=== PATIENT | female | born 1950 | race Caucasian/White ===

== ENCOUNTER 2017-03-02 12:51 | Inpatient (IN) ==
[2017-03-02] MEDS ORDERED: LEVOFLOXACIN INJ 100 ML IV ONE (14:10)
[2017-03-02] MEDS ORDERED: LEVOFLOXACIN INJ 500 MG in PREMIX 1 EACH IV STA (14:22)
[2017-03-02] MEDS ORDERED: SKIN HEALING OINT (AQUAPHOR) 50 GM TUBE TOP PRN (16:20)
[2017-03-02] MEDS: DILTIAZEM 60 MG TABLET PO SCH ×2 (17:11→22:44)
[2017-03-02] MEDS: ALBUTEROL 2.5 MG/3 ML NEB RESP TX SCH (18:32)
[2017-03-02] MEDS: METOPROLOL TARTRATE 25 MG TABLET PO SCH (21:10)
[2017-03-02] MEDS: ACETAMINOPHEN 325 MG TABLET PO PRN (21:10)
[2017-03-02] MEDS: PIPERACILLIN/TAZOBACTAM 3.375 MG in SODIUM CHLORIDE 0.9% 100 ML IV SCH (21:11)
[2017-03-02] MEDS: MAGNESIUM OXIDE 400 MG TABLET PO SCH (21:11)
[2017-03-03] MEDS: ALBUTEROL 2.5 MG/3 ML NEB RESP TX SCH ×5 (00:57→19:13)
[2017-03-03] MEDS: DILTIAZEM 60 MG TABLET PO SCH ×5 (04:31→20:24)
[2017-03-03] MEDS: PIPERACILLIN/TAZOBACTAM 3.375 MG in SODIUM CHLORIDE 0.9% 100 ML IV SCH ×2 (04:32→21:23)
[2017-03-03] MEDS: ONDANSETRON 4 MG/2 ML VIAL IV PRN ×4 (04:47→18:42)
[2017-03-03 07:37] LABS: Basophils % 0.2 % (0.0-0.8); Eosinophils # 0.2 10*3/uL (0.0-0.87); Hematocrit 28.6 VOL% (35.7-47.0); Hemoglobin 9.3 GM/DL (12.0-16.0); Immature Granulocytes Absolute 0.15 #; Lymphocytes # 1.4 10*3/uL (1.4-4.0); Lymphocytes % 8.8 % (21.3-54.2); Mean Corpuscular HGB Conc 32.5 GM/DL (32-36); Mean Corpuscular Hemoglobin 31 PG (27-34); Mean Corpuscular Volume 95.7 FL (87-102); Mean Platelet Volume 9.5 FL (9.6-12.0); Monocytes # 0.8 10*3/uL (0.11-0.8); Monocytes % 5.3 % (1.7-12.7); Neutrophils # 13.1 10*3/uL (1.4-7.4); Neutrophils % 83.7 % (38.7-73.9); Platelet Count 272 T/CUMM (130-400); Red Blood Count 2.99 MC/CUMM (3.8-5.5); Red Cell Distribution Width 15.6 % (9.3-17.3); White Blood Count 15.6 T/CUMM (4-12)
[2017-03-03 08:07] LABS: Calcium 9.3 MG/DL (8.5-10.1); Osmolality,Calculated 308.2 MOS/KG (273-304); Potassium 5.6 MMOL/L (3.5-5.1)
[2017-03-03] MEDS ORDERED: AMIODARONE 200 MG TABLET PO SCH (09:00)
[2017-03-03] MEDS: LOSARTAN 50 MG TABLET PO SCH ×2 (09:03→16:10)
[2017-03-03] MEDS: oxyCODONE/ACETAMINOPHEN 5-325 MG TABLET PO PRN (09:03)
[2017-03-03] MEDS: ZINC SULFATE 220 MG CAPSULE PO SCH ×2 (09:03→16:11)
[2017-03-03] MEDS: PANTOPRAZOLE 40 MG TABLET PO SCH ×2 (09:04→16:10)
[2017-03-03] MEDS: METOPROLOL TARTRATE 25 MG TABLET PO SCH ×2 (09:04→20:25)
[2017-03-03] MEDS: ASCORBIC ACID 500 MG TABLET PO SCH ×2 (09:04→16:09)
[2017-03-03] MEDS: predniSONE 10 MG TABLET PO SCH ×2 (09:04→16:10)
[2017-03-03] MEDS: MULTIVITAMIN (CENTRUM) TABLET PO SCH ×2 (09:04→16:10)
[2017-03-03] MEDS: MAGNESIUM OXIDE 400 MG TABLET PO SCH ×3 (09:05→20:24)
[2017-03-03 09:19] LABS: Hepatitis B Surface Ag Quant 0.13 Index; Hepatitis B Surface Ag Result Negative (Negative)
[2017-03-03] MEDS ORDERED: DEXTROSE 50% 25 GM/50 ML VIAL IV PRN (11:25)
[2017-03-03] MEDS ORDERED: GLUCAGON 1 MG VIAL IM PRN (11:25)
[2017-03-03] MEDS: INSULIN REGULAR 100 UNIT/ML SUBCUT SCH ×3 (12:11→23:57)
[2017-03-03] MEDS: ACETAMINOPHEN 325 MG TABLET PO PRN (12:33)
[2017-03-03] MEDS ORDERED: HEPARIN 10,000 UNIT/10 ML VIAL IV PRN (12:58)
[2017-03-03] MEDS: NYSTATIN POWDER 15 GM BOTTLE TOP SCH (14:41)
[2017-03-03] MEDS ORDERED: ACETAMINOPHEN 500 MG TABLET ONE (15:29)
[2017-03-03] MEDS ORDERED: ACETAMINOPHEN 500 MG TABLET PO ONE (15:50)
[2017-03-03 16:05] LABS: ABG Oxygen Saturation 91.1 % (95-100); ABG PCO2 38.9 MM HG (35-48); ABG PH 7.459 (7.35-7.45); ABG PO2 59.7 MM HG (80-95); ABG TCO2 28.2 MMOL/L (23-27); Allen Test Positive; Pt O2 Delivery Device Venturi Mask
[2017-03-03] MEDS ORDERED: VANCOMYCIN INJ 750 MG in SODIUM CHLORIDE 0.9% 150 ML IV PRN (16:58)
[2017-03-03] MEDS: methylPREDNISolone SOD SUC 40 MG/1 ML VIAL IV SCH (17:46)
[2017-03-03] MEDS ORDERED: VANCOMYCIN INJ 750 MG in SODIUM CHLORIDE 0.9% 150 ML IV ONE (18:00)
[2017-03-03] MEDS: ZALEPLON 5 MG CAPSULE PO SCH (20:24)
[2017-03-04] MEDS: methylPREDNISolone SOD SUC 40 MG/1 ML VIAL IV SCH ×3 (02:02→18:00)
[2017-03-04] MEDS: ALBUTEROL 2.5 MG/3 ML NEB RESP TX SCH ×4 (02:12→20:13)
[2017-03-04 05:09] LABS: Calcium 9.1 MG/DL (8.5-10.1); Magnesium 2.7 MG/DL (1.8-2.4); Potassium 5.4 MMOL/L (3.5-5.1); Prealbumin 20.3 MG/DL (20-40)
[2017-03-04] MEDS: INSULIN REGULAR 100 UNIT/ML SUBCUT SCH ×3 (06:13→19:21)
[2017-03-04] MEDS: LOSARTAN 50 MG TABLET PO SCH (08:38)
[2017-03-04] MEDS: DILTIAZEM 60 MG TABLET PO SCH ×2 (08:39→12:06)
[2017-03-04] MEDS: METOPROLOL TARTRATE 25 MG TABLET PO SCH ×2 (08:40→20:07)
[2017-03-04] MEDS: PANTOPRAZOLE 40 MG TABLET PO SCH (08:40)
[2017-03-04] MEDS: ZINC SULFATE 220 MG CAPSULE PO SCH (08:44)
[2017-03-04] MEDS: ASCORBIC ACID 500 MG TABLET PO SCH (08:44)
[2017-03-04] MEDS: MULTIVITAMIN (CENTRUM) TABLET PO SCH (08:44)
[2017-03-04] MEDS: MAGNESIUM OXIDE 400 MG TABLET PO SCH ×2 (08:44→20:07)
[2017-03-04] MEDS: PIPERACILLIN/TAZOBACTAM 3.375 MG in SODIUM CHLORIDE 0.9% 100 ML IV SCH ×2 (08:50→21:32)
[2017-03-04] MEDS ORDERED: FAMOTIDINE 8 MG/ML 50 ML/BOTTLE PO ONE (11:00)
[2017-03-04] MEDS: AMIODARONE 200 MG TABLET PO SCH (11:10)
[2017-03-04] MEDS ORDERED: ALUM/MAG/SIMETH/LIDO VISC 1:1 30 ML BOTTLE PO ONE (12:00)
[2017-03-04] MEDS ORDERED: FAMOTIDINE 20 MG TABLET PO ONE (12:00)
[2017-03-04] MEDS: NYSTATIN POWDER 15 GM BOTTLE TOP SCH (12:03)
[2017-03-04] MEDS ORDERED: DILTIAZEM 50 MG/10 ML VIAL IV ONE (12:50)
[2017-03-04] MEDS: DILTIAZEM INJ 100 MG in SODIUM CHLORIDE 0.9% 100 ML IV SCH (14:47)
[2017-03-04] MEDS ORDERED: VANCOMYCIN INJ 750 MG in SODIUM CHLORIDE 0.9% 150 ML IV ONE (15:00)
[2017-03-04] MEDS ORDERED: LEVOFLOXACIN INJ 500 MG in PREMIX 1 EACH IV SCH (20:00)
[2017-03-04] MEDS: ZALEPLON 5 MG CAPSULE PO SCH (20:07)
[2017-03-05] MEDS: INSULIN REGULAR 100 UNIT/ML SUBCUT SCH ×5 (00:12→23:46)
[2017-03-05] MEDS: methylPREDNISolone SOD SUC 40 MG/1 ML VIAL IV SCH ×3 (01:56→18:28)
[2017-03-05] MEDS: ALBUTEROL 2.5 MG/3 ML NEB RESP TX SCH ×4 (04:25→20:04)
[2017-03-05] MEDS ORDERED: LIDOCAINE 1% 20 ML VIAL MISC INJ ONE (07:01)
[2017-03-05] MEDS ORDERED: LIDOCAINE 2% 20 ML VIAL RESP TX ONE (07:01)
[2017-03-05] MEDS ORDERED: MIDAZOLAM 2 MG/2 ML VIAL IV ONE (07:01)
[2017-03-05 08:41] LABS: Basophils % 0.1 % (0.0-0.8); Hematocrit 27.3 VOL% (35.7-47.0); Hemoglobin 8.5 GM/DL (12.0-16.0); Immature Granulocytes % 1.3 %; Immature Granulocytes Absolute 0.14 #; Lymphocytes # 0.5 10*3/uL (1.4-4.0); Lymphocytes % 4.5 % (21.3-54.2); Mean Corpuscular HGB Conc 31.1 GM/DL (32-36); Mean Corpuscular Hemoglobin 31 PG (27-34); Mean Corpuscular Volume 98.9 FL (87-102); Mean Platelet Volume 9.6 FL (9.6-12.0); Monocytes # 0.3 10*3/uL (0.11-0.8); Monocytes % 3.2 % (1.7-12.7); NRBC # 0.02 10*3/uL; Neutrophils # 9.6 10*3/uL (1.4-7.4); Neutrophils % 90.9 % (38.7-73.9); Platelet Count 262 T/CUMM (130-400); Red Blood Count 2.76 MC/CUMM (3.8-5.5); Red Cell Distribution Width 15.3 % (9.3-17.3); White Blood Count 10.6 T/CUMM (4-12)
[2017-03-05 09:01] LABS: Giant Platelets Few; Hypochromasia 1+; Lymphocytes 4 % (20-55); Macrocytosis Slight; Nucleated Red Blood Cells 1 (0-5); Platelet Estimate Adequate; Polychromasia Slight; Segmented Neutrophils 91 % (50-85); Total Cells Counted 100
[2017-03-05 09:19] LABS: Calcium 8.9 MG/DL (8.5-10.1); Magnesium 2.8 MG/DL (1.8-2.4); Osmolality,Calculated 285.4 MOS/KG (273-304); Potassium 4.7 MMOL/L (3.5-5.1)
[2017-03-05] MEDS: DORNASE ALFA 2.5 MG/2.5 ML VIAL RESP TX SCH ×2 (09:29→20:04)
[2017-03-05] MEDS: LOSARTAN 50 MG TABLET PO SCH (09:48)
[2017-03-05] MEDS: MULTIVITAMIN (CENTRUM) TABLET PO SCH (09:50)
[2017-03-05] MEDS: ASCORBIC ACID 500 MG TABLET PO SCH (09:51)
[2017-03-05] MEDS: PANTOPRAZOLE 40 MG TABLET PO SCH (09:52)
[2017-03-05] MEDS: ZINC SULFATE 220 MG CAPSULE PO SCH (09:53)
[2017-03-05] MEDS: METOPROLOL TARTRATE 25 MG TABLET PO SCH ×2 (09:54→20:10)
[2017-03-05] MEDS: MAGNESIUM OXIDE 400 MG TABLET PO SCH ×2 (09:54→20:10)
[2017-03-05] MEDS: AMIODARONE 200 MG TABLET PO SCH (09:55)
[2017-03-05] MEDS: PIPERACILLIN/TAZOBACTAM 3.375 MG in SODIUM CHLORIDE 0.9% 100 ML IV SCH ×2 (09:58→20:10)
[2017-03-05] MEDS: NYSTATIN POWDER 15 GM BOTTLE TOP SCH (09:58)
[2017-03-05] MEDS: DILTIAZEM INJ 100 MG in SODIUM CHLORIDE 0.9% 100 ML IV SCH (15:14)
[2017-03-05] MEDS: ZALEPLON 5 MG CAPSULE PO SCH (20:10)
[2017-03-06] MEDS: methylPREDNISolone SOD SUC 40 MG/1 ML VIAL IV SCH ×2 (00:52→09:25)
[2017-03-06] MEDS: ALBUTEROL 2.5 MG/3 ML NEB RESP TX SCH ×4 (02:42→20:42)
[2017-03-06 04:14] LABS: Calcium 8.4 MG/DL (8.5-10.1); Magnesium 3.1 MG/DL (1.8-2.4); Osmolality,Calculated 292.5 MOS/KG (273-304)
[2017-03-06] MEDS: INSULIN REGULAR 100 UNIT/ML SUBCUT SCH ×2 (06:25→17:59)
[2017-03-06] MEDS: DORNASE ALFA 2.5 MG/2.5 ML VIAL RESP TX SCH ×2 (07:47→20:42)
[2017-03-06] MEDS: ZINC SULFATE 220 MG CAPSULE PO SCH (09:22)
[2017-03-06] MEDS: oxyCODONE/ACETAMINOPHEN 5-325 MG TABLET PO PRN (09:22)
[2017-03-06] MEDS: LOSARTAN 50 MG TABLET PO SCH (09:22)
[2017-03-06] MEDS: ASCORBIC ACID 500 MG TABLET PO SCH (09:23)
[2017-03-06] MEDS: AMIODARONE 200 MG TABLET PO SCH (09:23)
[2017-03-06] MEDS: METOPROLOL TARTRATE 25 MG TABLET PO SCH ×2 (09:23→22:15)
[2017-03-06] MEDS: MULTIVITAMIN (CENTRUM) TABLET PO SCH (09:23)
[2017-03-06] MEDS: NYSTATIN POWDER 15 GM BOTTLE TOP SCH (09:24)
[2017-03-06] MEDS: MAGNESIUM OXIDE 400 MG TABLET PO SCH ×2 (09:24→22:16)
[2017-03-06] MEDS: PANTOPRAZOLE 40 MG TABLET PO SCH (09:24)
[2017-03-06] MEDS ORDERED: METOPROLOL TARTRATE 5 MG/5 ML VIAL IV ONE (13:00)
[2017-03-06] MEDS: PIPERACILLIN/TAZOBACTAM 3.375 MG in SODIUM CHLORIDE 0.9% 100 ML IV SCH ×2 (17:55→22:17)
[2017-03-06] MEDS: ZALEPLON 5 MG CAPSULE PO SCH (22:15)
[2017-03-07] MEDS: INSULIN REGULAR 100 UNIT/ML SUBCUT SCH ×3 (01:09→16:13)
[2017-03-07] MEDS: ALBUTEROL 2.5 MG/3 ML NEB RESP TX SCH ×3 (02:36→13:50)
[2017-03-07] MEDS: DORNASE ALFA 2.5 MG/2.5 ML VIAL RESP TX SCH (07:42)
[2017-03-07] MEDS ORDERED: predniSONE 20 MG TABLET PO SCH (09:00)
[2017-03-07] MEDS: MAGNESIUM OXIDE 400 MG TABLET PO SCH (09:55)
[2017-03-07] MEDS: LOSARTAN 50 MG TABLET PO SCH (09:55)
[2017-03-07] MEDS: ASCORBIC ACID 500 MG TABLET PO SCH (09:56)
[2017-03-07] MEDS: AMIODARONE 200 MG TABLET PO SCH (09:56)
[2017-03-07] MEDS: ZINC SULFATE 220 MG CAPSULE PO SCH (09:56)
[2017-03-07] MEDS: MULTIVITAMIN (CENTRUM) TABLET PO SCH (09:56)
[2017-03-07] MEDS: PANTOPRAZOLE 40 MG TABLET PO SCH (09:57)
[2017-03-07] MEDS: NYSTATIN POWDER 15 GM BOTTLE TOP SCH (09:57)
[2017-03-07] MEDS: METOPROLOL TARTRATE 25 MG TABLET PO SCH (13:51)
[2017-03-07] MEDS: PIPERACILLIN/TAZOBACTAM 3.375 MG in SODIUM CHLORIDE 0.9% 100 ML IV SCH (13:51)
[2017-03-07 16:18] VITALS: BP 139/84
== END 2017-03-07 14:00 | disposition home health service (06) | DRG 193 ==
LOC: EDUNIT# → EDBD → N.ED 12:51 → N.EDINP 15:07 → N.2E 15:49 → N.ICU 03-03 15:59 → N.2E 03-05 23:52
PROVIDERS: ADMIT Internal Medicine; ATTEND Internal Medicine

== ENCOUNTER 2017-06-16 12:00 | Inpatient (IN) ==
[2017-06-16 14:25] LABS: Basophils # 0.1 10*3/uL (0.0-0.2); Basophils % 0.7 % (0.0-0.8); Eosinophils # 0.8 10*3/uL (0.0-0.87); Hematocrit 28.4 VOL% (35.7-47.0); Hemoglobin 8.9 GM/DL (12.0-16.0); Immature Granulocytes % 0.3 %; Immature Granulocytes Absolute 0.02 #; Lymphocytes % 26.2 % (21.3-54.2); Mean Corpuscular HGB Conc 31.3 GM/DL (32-36); Mean Corpuscular Hemoglobin 31 PG (27-34); Mean Corpuscular Volume 99.3 FL (87-102); Mean Platelet Volume 9.6 FL (9.6-12.0); Monocytes # 0.7 10*3/uL (0.11-0.8); Monocytes % 9.3 % (1.7-12.7); Neutrophils # 4.1 10*3/uL (1.4-7.4); Neutrophils % 53.5 % (38.7-73.9); Platelet Count 255 T/CUMM (130-400); Red Blood Count 2.86 MC/CUMM (3.8-5.5); Red Cell Distribution Width 17.4 % (9.3-17.3); White Blood Count 7.6 T/CUMM (4-12)
[2017-06-16] MEDS ORDERED: ACETAMINOPHEN 325 MG TABLET PO PRN (14:41)
[2017-06-16] MEDS ORDERED: MORPHINE 4 MG/1 ML VIAL IV PRN (14:41)
[2017-06-16] MEDS ORDERED: ONDANSETRON 4 MG/2 ML VIAL IV PRN (14:41)
[2017-06-16] MEDS: PANTOPRAZOLE 40 MG VIAL IV SCH ×3 (17:53→21:32)
[2017-06-16] MEDS: LACTULOSE 20 GM/30 ML UDCUP PO SCH ×2 (17:54→21:32)
[2017-06-16] MEDS: AMIODARONE 200 MG TABLET PO SCH (17:54)
[2017-06-16] MEDS: ASCORBIC ACID 500 MG TABLET PO SCH (17:54)
[2017-06-16] MEDS: predniSONE 5 MG TABLET PO SCH (17:54)
[2017-06-16] MEDS: MULTIVITAMIN (CENTRUM) TABLET PO SCH (17:54)
[2017-06-16] MEDS: MAGNESIUM OXIDE 400 MG TABLET PO SCH ×2 (17:54→21:31)
[2017-06-16] MEDS: ZINC SULFATE 220 MG CAPSULE PO SCH (17:54)
[2017-06-16 20:54] LABS: Hematocrit 26.4 VOL% (35.7-47.0); Hemoglobin 8.5 GM/DL (12.0-16.0)
[2017-06-16] MEDS: diphenhydrAMINE CAP 25 MG CAPSULE PO PRN (21:32)
[2017-06-17 07:15] LABS: Basophils % 0.3 % (0.0-0.8); Eosinophils # 0.4 10*3/uL (0.0-0.87); Eosinophils % 6.6 % (0.00-10.9); Hematocrit 24.3 VOL% (35.7-47.0); Immature Granulocytes % 0.8 %; Immature Granulocytes Absolute 0.05 #; Lymphocytes # 1.5 10*3/uL (1.4-4.0); Lymphocytes % 24.6 % (21.3-54.2); Mean Corpuscular HGB Conc 32.9 GM/DL (32-36); Mean Corpuscular Hemoglobin 32 PG (27-34); Mean Corpuscular Volume 97.2 FL (87-102); Mean Platelet Volume 9.9 FL (9.6-12.0); Monocytes # 0.7 10*3/uL (0.11-0.8); Monocytes % 10.9 % (1.7-12.7); Neutrophils # 3.5 10*3/uL (1.4-7.4); Neutrophils % 56.8 % (38.7-73.9); Platelet Count 252 T/CUMM (130-400); Red Cell Distribution Width 17.4 % (9.3-17.3); White Blood Count 6.2 T/CUMM (4-12)
[2017-06-17] MEDS: PANTOPRAZOLE 40 MG VIAL IV SCH ×2 (07:25→20:38)
[2017-06-17] MEDS: ZINC SULFATE 220 MG CAPSULE PO SCH (07:25)
[2017-06-17] MEDS: predniSONE 5 MG TABLET PO SCH (07:25)
[2017-06-17] MEDS: AMIODARONE 200 MG TABLET PO SCH (07:25)
[2017-06-17] MEDS: MAGNESIUM OXIDE 400 MG TABLET PO SCH ×2 (07:25→20:19)
[2017-06-17] MEDS: MULTIVITAMIN (CENTRUM) TABLET PO SCH (07:25)
[2017-06-17] MEDS: ASCORBIC ACID 500 MG TABLET PO SCH (07:25)
[2017-06-17] MEDS: LACTULOSE 20 GM/30 ML UDCUP PO SCH (07:25)
[2017-06-17 07:32] LABS: Calcium 8.1 MG/DL (8.5-10.1); Osmolality,Calculated 279.1 MOS/KG (273-304); Potassium 4.7 MMOL/L (3.5-5.1)
[2017-06-17 07:51] LABS: % Iron Saturation 26.9 % (18-50); Ferritin 1314.5 ng/ml (8-252)
[2017-06-17 08:47] LABS: Hemoglobin 7.9 GM/DL (12.0-16.0)
[2017-06-17] MEDS ORDERED: HEPARIN 10,000 UNIT/10 ML VIAL IV PRN (11:45)
[2017-06-17 11:55] LABS: Hematocrit 21.6 VOL% (35.7-47.0); Hemoglobin 7.1 GM/DL (12.0-16.0)
[2017-06-17] MEDS ORDERED: SODIUM CHLORIDE 0.9% 1,000 ML IV PRN ×2 (11:59→21:45)
[2017-06-17 15:06] LABS: Hematocrit 21.6 VOL% (35.7-47.0); Hemoglobin 7.1 GM/DL (12.0-16.0)
[2017-06-17] MEDS: diphenhydrAMINE CAP 25 MG CAPSULE PO PRN (20:45)
[2017-06-18 07:40] LABS: Basophils % 0.3 % (0.0-0.8); Eosinophils # 0.5 10*3/uL (0.0-0.87); Hematocrit 19.6 VOL% (35.7-47.0); Immature Granulocytes % 0.6 %; Immature Granulocytes Absolute 0.06 #; Lymphocytes # 2.1 10*3/uL (1.4-4.0); Lymphocytes % 20.6 % (21.3-54.2); Mean Corpuscular HGB Conc 31.6 GM/DL (32-36); Mean Corpuscular Hemoglobin 30 PG (27-34); Mean Corpuscular Volume 95.6 FL (87-102); Mean Platelet Volume 9.7 FL (9.6-12.0); Monocytes # 0.8 10*3/uL (0.11-0.8); Monocytes % 7.9 % (1.7-12.7); Neutrophils # 6.7 10*3/uL (1.4-7.4); Neutrophils % 65.6 % (38.7-73.9); Platelet Count 189 T/CUMM (130-400); Red Blood Count 2.05 MC/CUMM (3.8-5.5); Red Cell Distribution Width 17.2 % (9.3-17.3); White Blood Count 10.2 T/CUMM (4-12)
[2017-06-18 07:46] LABS: Hemoglobin 6.2 GM/DL (12.0-16.0)
[2017-06-18 08:05] LABS: Calcium 8.2 MG/DL (8.5-10.1); Osmolality,Calculated 283.1 MOS/KG (273-304); Potassium 5.6 MMOL/L (3.5-5.1)
[2017-06-18] MEDS: PANTOPRAZOLE 40 MG VIAL IV SCH ×2 (08:56→20:56)
[2017-06-18] MEDS: ASCORBIC ACID 500 MG TABLET PO SCH (08:58)
[2017-06-18] MEDS: predniSONE 5 MG TABLET PO SCH (08:58)
[2017-06-18] MEDS: MAGNESIUM OXIDE 400 MG TABLET PO SCH ×2 (08:58→20:31)
[2017-06-18] MEDS: MULTIVITAMIN (CENTRUM) TABLET PO SCH (08:58)
[2017-06-18] MEDS ORDERED: PROPOFOL 200 MG/20 ML VIAL IV ONE (13:13)
[2017-06-18] MEDS ORDERED: HEPARIN 10,000 UNIT/10 ML VIAL IV SCH (16:00)
[2017-06-18 18:56] LABS: Hematocrit 33.4 VOL% (35.7-47.0)
[2017-06-18 19:01] LABS: Hemoglobin 11.3 GM/DL (12.0-16.0)
[2017-06-18] MEDS: diphenhydrAMINE CAP 25 MG CAPSULE PO PRN (20:56)
[2017-06-19] MEDS: diphenhydrAMINE CAP 25 MG CAPSULE PO PRN ×3 (04:10→20:22)
[2017-06-19 06:07] LABS: Hematocrit 31.9 VOL% (35.7-47.0)
[2017-06-19] MEDS: hydrALAZINE 20 MG/1 ML VIAL IV PRN ×2 (06:21→13:21)
[2017-06-19] MEDS: MULTIVITAMIN (CENTRUM) TABLET PO SCH (08:13)
[2017-06-19] MEDS: MAGNESIUM OXIDE 400 MG TABLET PO SCH ×2 (08:14→20:21)
[2017-06-19] MEDS: PANTOPRAZOLE 40 MG VIAL IV SCH ×2 (08:15→20:22)
[2017-06-19] MEDS: ASCORBIC ACID 500 MG TABLET PO SCH (08:15)
[2017-06-19] MEDS: predniSONE 5 MG TABLET PO SCH (08:15)
[2017-06-19] MEDS: METOPROLOL TARTRATE 50 MG TABLET PO SCH ×2 (14:14→20:21)
[2017-06-20] MEDS: MULTIVITAMIN (CENTRUM) TABLET PO SCH ×2 (07:50→11:07)
[2017-06-20] MEDS: predniSONE 5 MG TABLET PO SCH ×2 (07:50→11:07)
[2017-06-20] MEDS: METOPROLOL TARTRATE 50 MG TABLET PO SCH ×2 (07:50→11:07)
[2017-06-20] MEDS: ASCORBIC ACID 500 MG TABLET PO SCH ×2 (07:50→11:07)
[2017-06-20] MEDS: MAGNESIUM OXIDE 400 MG TABLET PO SCH ×2 (07:50→11:07)
[2017-06-20] MEDS: PANTOPRAZOLE 40 MG VIAL IV SCH ×2 (07:51→11:07)
[2017-06-20 12:56] VITALS: BP 170/84
== END 2017-06-20 13:00 | disposition home or self-care (01) | DRG 377 ==
LOC: EDBD → EDUNIT# → N.EDINP 12:00 → N.ED 12:00 → N.5E 17:11 → N.CC 06-17 11:49 → SUATTDRO 06-17 13:22 → N.4E 06-19 21:15
PROVIDERS: ADMIT Internal Medicine; ATTEND Internal Medicine Infectious Disease

== ENCOUNTER 2017-06-21 01:39 | Inpatient (IN) ==
[2017-06-21 02:47] LABS: Basophils # 0.1 10*3/uL (0.0-0.2); Basophils % 0.9 % (0.0-0.8); Eosinophils # 0.8 10*3/uL (0.0-0.87); Eosinophils % 9.5 % (0.00-10.9); Hematocrit 33.8 VOL% (35.7-47.0); Immature Granulocytes % 0.5 %; Immature Granulocytes Absolute 0.04 #; Lymphocytes # 1.8 10*3/uL (1.4-4.0); Lymphocytes % 22.4 % (21.3-54.2); Mean Corpuscular HGB Conc 32.5 GM/DL (32-36); Mean Corpuscular Hemoglobin 30 PG (27-34); Mean Corpuscular Volume 90.9 FL (87-102); Mean Platelet Volume 9.7 FL (9.6-12.0); Monocytes # 0.7 10*3/uL (0.11-0.8); Monocytes % 7.9 % (1.7-12.7); Neutrophils # 4.8 10*3/uL (1.4-7.4); Neutrophils % 58.8 % (38.7-73.9); Platelet Count 198 T/CUMM (130-400); Red Blood Count 3.72 MC/CUMM (3.8-5.5); Red Cell Distribution Width 17.4 % (9.3-17.3); White Blood Count 8.2 T/CUMM (4-12)
[2017-06-21 02:59] LABS: Calcium 8.4 MG/DL (8.5-10.1); Potassium 4.6 MMOL/L (3.5-5.1)
[2017-06-21] MEDS ORDERED: SODIUM CHLORIDE 0.9% 1,000 ML IV PRN (08:14)
[2017-06-21] MEDS ORDERED: NOREPINEPHRINE 8 MG in SODIUM CHLORIDE 0.9% 242 ML IV PRN (08:36)
[2017-06-21] MEDS ORDERED: PANTOPRAZOLE 40 MG TABLET PO SCH (09:00)
[2017-06-21 09:22] LABS: Basophils # 0.1 10*3/uL (0.0-0.2); Basophils % 0.6 % (0.0-0.8); Eosinophils # 0.7 10*3/uL (0.0-0.87); Eosinophils % 8.2 % (0.00-10.9); Hematocrit 26.5 VOL% (35.7-47.0); Hematocrit 26.8 VOL% (35.7-47.0); Hemoglobin 8.5 GM/DL (12.0-16.0); Hemoglobin 8.8 GM/DL (12.0-16.0); Immature Granulocytes % 0.8 %; Immature Granulocytes Absolute 0.07 #; Lymphocytes # 1.9 10*3/uL (1.4-4.0); Lymphocytes % 21.6 % (21.3-54.2); Mean Corpuscular HGB Conc 32.1 GM/DL (32-36); Mean Corpuscular Hemoglobin 29 PG (27-34); Mean Corpuscular Volume 90.4 FL (87-102); Mean Platelet Volume 9.6 FL (9.6-12.0); Monocytes # 0.7 10*3/uL (0.11-0.8); Monocytes % 8.3 % (1.7-12.7); Neutrophils # 5.2 10*3/uL (1.4-7.4); Neutrophils % 60.5 % (38.7-73.9); Platelet Count 173 T/CUMM (130-400); Red Blood Count 2.93 MC/CUMM (3.8-5.5); Red Cell Distribution Width 17.4 % (9.3-17.3); White Blood Count 8.6 T/CUMM (4-12)
[2017-06-21 09:32] LABS: INR 1.1; PT Patient Result 11.2 SECS; Partial Thromboplastin Time 26.3 SECS (0-40)
[2017-06-21] MEDS: PANTOPRAZOLE 40 MG VIAL IV SCH (09:39)
[2017-06-21 15:59] LABS: Hematocrit 29.2 VOL% (35.7-47.0); Hemoglobin 9.7 GM/DL (12.0-16.0)
[2017-06-21 21:19] LABS: Hematocrit 27.5 VOL% (35.7-47.0); Hemoglobin 9.1 GM/DL (12.0-16.0)
[2017-06-22 03:20] LABS: Hematocrit 27.7 VOL% (35.7-47.0); Hemoglobin 8.9 GM/DL (12.0-16.0)
[2017-06-22 03:29] LABS: Partial Thromboplastin Time 26.1 SECS (0-40)
[2017-06-22 03:53] LABS: % Iron Saturation 30.3 % (18-50); Ferritin 1113.2 ng/ml (8-252)
[2017-06-22 06:31] LABS: Hematocrit 28.2 VOL% (35.7-47.0); Hemoglobin 9.2 GM/DL (12.0-16.0)
[2017-06-22 09:20] LABS: Hemoglobin 9.3 GM/DL (12.0-16.0)
[2017-06-22] MEDS: PANTOPRAZOLE 40 MG VIAL IV SCH (09:26)
[2017-06-22] MEDS ORDERED: BISACODYL 5 MG TABLET PO ONE (12:00)
[2017-06-22] MEDS ORDERED: POLYETHYLENE GLYCOL POWDER 255 GM BOTTLE PO ONE (13:00)
[2017-06-22 15:35] LABS: Hematocrit 26.8 VOL% (35.7-47.0); Hemoglobin 8.8 GM/DL (12.0-16.0)
[2017-06-22] MEDS: ONDANSETRON 4 MG/2 ML VIAL IV PRN ×2 (19:14→23:02)
[2017-06-22] MEDS ORDERED: MAGNESIUM CITRATE 300 ML BOTTLE PO ONE (21:00)
[2017-06-22 21:52] LABS: Hematocrit 25.8 VOL% (35.7-47.0); Hemoglobin 8.4 GM/DL (12.0-16.0)
[2017-06-23 05:51] LABS: Hematocrit 25.3 VOL% (35.7-47.0); Hemoglobin 8.1 GM/DL (12.0-16.0)
[2017-06-23] MEDS: PANTOPRAZOLE 40 MG VIAL IV SCH (08:11)
[2017-06-23] MEDS ORDERED: PHENYLEPHRINE 1 MG/10 ML SYRINGE IV ONE (10:00)
[2017-06-23] MEDS ORDERED: LIDOCAINE 100 MG/5 ML SYRINGE ONE (10:00)
[2017-06-23] MEDS ORDERED: PROPOFOL 200 MG/20 ML VIAL IV ONE (10:00)
[2017-06-23 13:58] LABS: Hematocrit 22.6 VOL% (35.7-47.0); Hemoglobin 7.2 GM/DL (12.0-16.0)
[2017-06-23 20:04] LABS: Hematocrit 21.1 VOL% (35.7-47.0)
[2017-06-23] MEDS ORDERED: SODIUM CHLORIDE 0.9% 1,000 ML IV PRN (20:11)
[2017-06-24 02:05] LABS: Hematocrit 24.7 VOL% (35.7-47.0)
[2017-06-24] MEDS: HYDROmorphone 2 MG/1 ML VIAL IM PRN (04:45)
[2017-06-24] MEDS: ONDANSETRON 4 MG/2 ML VIAL IV PRN (07:52)
[2017-06-24] MEDS: PANTOPRAZOLE 40 MG VIAL IV SCH (08:11)
[2017-06-24] MEDS: SKIN HEALING OINT (AQUAPHOR) 50 GM TUBE TOP PRN (08:14)
[2017-06-24] MEDS ORDERED: DEXTROSE 5% 1,000 ML IV SCH (11:00)
[2017-06-24 13:55] LABS: Hematocrit 27.4 VOL% (35.7-47.0); Hemoglobin 8.5 GM/DL (12.0-16.0)
[2017-06-24 19:08] LABS: Hematocrit 25.9 VOL% (35.7-47.0); Hemoglobin 8.1 GM/DL (12.0-16.0)
[2017-06-25 01:45] LABS: Hematocrit 22.6 VOL% (35.7-47.0); Hemoglobin 7.1 GM/DL (12.0-16.0)
[2017-06-25] MEDS: ONDANSETRON 4 MG/2 ML VIAL IV PRN ×2 (05:01→19:56)
[2017-06-25] MEDS: PANTOPRAZOLE 40 MG VIAL IV SCH (08:59)
[2017-06-25 12:05] LABS: Hematocrit 28.2 VOL% (35.7-47.0)
[2017-06-25 12:11] LABS: Hemoglobin 9.2 GM/DL (12.0-16.0)
[2017-06-25] MEDS: SKIN HEALING OINT (AQUAPHOR) 50 GM TUBE TOP PRN (13:30)
[2017-06-25] MEDS: ACETAMINOPHEN 325 MG TABLET PO PRN ×2 (15:03→21:07)
[2017-06-25] MEDS ORDERED: LEVOFLOXACIN INJ 500 MG in PREMIX 1 EACH IV ONE (17:00)
[2017-06-26 05:05] LABS: Basophils % 0.3 % (0.0-0.8); Eosinophils # 0.7 10*3/uL (0.0-0.87); Eosinophils % 6.6 % (0.00-10.9); Hematocrit 22.8 VOL% (35.7-47.0); Hemoglobin 7.6 GM/DL (12.0-16.0); Immature Granulocytes % 0.5 %; Immature Granulocytes Absolute 0.06 #; Lymphocytes # 2.1 10*3/uL (1.4-4.0); Lymphocytes % 18.8 % (21.3-54.2); Mean Corpuscular HGB Conc 33.3 GM/DL (32-36); Mean Corpuscular Hemoglobin 29 PG (27-34); Mean Corpuscular Volume 87.4 FL (87-102); Mean Platelet Volume 9.2 FL (9.6-12.0); Monocytes # 0.9 10*3/uL (0.11-0.8); Monocytes % 7.9 % (1.7-12.7); Neutrophils # 7.3 10*3/uL (1.4-7.4); Neutrophils % 65.9 % (38.7-73.9); Platelet Count 221 T/CUMM (130-400); Red Blood Count 2.61 MC/CUMM (3.8-5.5); Red Cell Distribution Width 17.8 % (9.3-17.3); White Blood Count 11.1 T/CUMM (4-12)
[2017-06-26 05:33] LABS: Calcium 8.1 MG/DL (8.5-10.1)
[2017-06-26] MEDS: PANTOPRAZOLE 40 MG VIAL IV SCH (08:45)
[2017-06-26 09:45] LABS: Hematocrit 26.1 VOL% (35.7-47.0); Hemoglobin 8.6 GM/DL (12.0-16.0)
[2017-06-26] MEDS ORDERED: cefOXitin 2,000 MG in SYRINGE 1 EACH IV ONE (10:03)
[2017-06-26] MEDS ORDERED: METOPROLOL TARTRATE 50 MG TABLET ONE (11:05)
[2017-06-26] MEDS ORDERED: METOPROLOL TARTRATE 50 MG TABLET PO ONE (11:10)
[2017-06-26] MEDS ORDERED: BUPIVACAINE 0.25% 50 ML VIAL ONE (13:22)
[2017-06-26] MEDS ORDERED: SODIUM CHLORIDE 0.9% 1,000 ML IV PRN (13:47)
[2017-06-26] MEDS ORDERED: fentaNYL 100 MCG/2 ML VIAL ONE (15:10)
[2017-06-26] MEDS ORDERED: DESFLURANE 1 UNIT/15 MINUTE INH ONE (15:10)
[2017-06-26] MEDS ORDERED: ACETAMINOPHEN 1,000 MG/100 ML VIAL IV ONE (15:11)
[2017-06-26] MEDS ORDERED: ROCURONIUM 100 MG/10 ML VIAL IV ONE (15:11)
[2017-06-26] MEDS ORDERED: ETOMIDATE 40 MG/20 ML VIAL IV ONE (15:11)
[2017-06-26] MEDS ORDERED: SODIUM CHLORIDE 0.9% 500 ML IV ONE (15:11)
[2017-06-26] MEDS ORDERED: NEOSTIGMINE 10 MG/10 ML VIAL ONE (15:11)
[2017-06-26] MEDS ORDERED: GLYCOPYRROLATE 0.4 MG/2 ML VIAL ONE (15:11)
[2017-06-26] MEDS ORDERED: ONDANSETRON 4 MG/2 ML VIAL ONE (15:11)
[2017-06-26] MEDS ORDERED: PHENYLEPHRINE 10 MG/1 ML VIAL IV ONE (15:11)
[2017-06-26] MEDS ORDERED: KETOROLAC 30 MG/1 ML VIAL ONE (15:11)
[2017-06-26] MEDS ORDERED: PHENYLEPHRINE DRIP 40 MG/250 ML PREMIX IV ONE (15:22)
[2017-06-26] MEDS: PHENYLEPHRINE DRIP 40 MG/250 ML PREMIX IV PRN (15:26)
[2017-06-26 15:57] LABS: Hematocrit 28.3 VOL% (35.7-47.0)
[2017-06-26] MEDS: IPRATROPIUM 500 MCG/2.5 ML NEB RESP TX SCH (19:38)
[2017-06-26] MEDS: HYDROmorphone 2 MG/1 ML VIAL IM PRN (22:09)
[2017-06-27] MEDS: IPRATROPIUM 500 MCG/2.5 ML NEB RESP TX SCH ×4 (00:45→20:30)
[2017-06-27] MEDS: ACETAMINOPHEN 325 MG TABLET PO PRN ×2 (04:20→20:14)
[2017-06-27 06:04] LABS: Basophils # 0.1 10*3/uL (0.0-0.2); Basophils % 0.7 % (0.0-0.8); Eosinophils # 0.7 10*3/uL (0.0-0.87); Hemoglobin 8.9 GM/DL (12.0-16.0); Immature Granulocytes % 0.7 %; Immature Granulocytes Absolute 0.09 #; Lymphocytes # 1.7 10*3/uL (1.4-4.0); Lymphocytes % 14.1 % (21.3-54.2); Mean Corpuscular HGB Conc 31.8 GM/DL (32-36); Mean Corpuscular Hemoglobin 28 PG (27-34); Mean Corpuscular Volume 88.6 FL (87-102); Mean Platelet Volume 9.4 FL (9.6-12.0); Monocytes # 0.8 10*3/uL (0.11-0.8); Monocytes % 6.7 % (1.7-12.7); Neutrophils # 8.7 10*3/uL (1.4-7.4); Neutrophils % 71.8 % (38.7-73.9); Platelet Count 257 T/CUMM (130-400); Red Blood Count 3.16 MC/CUMM (3.8-5.5); Red Cell Distribution Width 19.9 % (9.3-17.3); White Blood Count 12.1 T/CUMM (4-12)
[2017-06-27 06:30] LABS: Blood Urea Nitrogen 35 MG/DL (7-18); Calcium 8.5 MG/DL (8.5-10.1); Glucose 42 MG/DL (74-106); Sodium 136 MMOL/L (136-145)
[2017-06-27 06:31] LABS: Troponin I Only 0.141 NG/ML (0.00-0.045)
[2017-06-27 06:33] LABS: Potassium 6.3 MMOL/L (3.5-5.1)
[2017-06-27] MEDS: PHENYLEPHRINE DRIP 40 MG/250 ML PREMIX IV PRN (07:10)
[2017-06-27 08:11] LABS: Calcium 8.3 MG/DL (8.5-10.1); Osmolality,Calculated 273.1 MOS/KG (273-304)
[2017-06-27 08:18] LABS: Potassium 6.3 MMOL/L (3.5-5.1)
[2017-06-27] MEDS: DEXTROSE 50% 25 GM/50 ML VIAL IV PRN ×2 (08:30→12:40)
[2017-06-27] MEDS: PANTOPRAZOLE 40 MG VIAL IV SCH (08:43)
[2017-06-27] MEDS: DEXTROSE 5% NACL 0.9% 1,000 ML IV SCH (09:25)
[2017-06-27] MEDS ORDERED: NALOXONE 0.4 MG/ML VIAL IV PRN (11:41)
[2017-06-27] MEDS ORDERED: MORPHINE PCA 30 MG/30 ML SYRINGE IV SCH (12:00)
[2017-06-27] MEDS: HYDROmorphone 2 MG/1 ML VIAL IM PRN ×2 (12:39→17:54)
[2017-06-27] MEDS: ONDANSETRON 4 MG/2 ML VIAL IV PRN ×2 (12:40→17:54)
[2017-06-27 13:11] LABS: Potassium 3.9 MMOL/L (3.5-5.1)
[2017-06-27] MEDS ORDERED: GLUCAGON 1 MG VIAL IM PRN (14:08)
[2017-06-27] MEDS: FAT EMULSION 20% 250 ML IV SCH (15:25)
[2017-06-27] MEDS ORDERED: DEXTROSE 10% 1,000 ML IV PRN (17:00)
[2017-06-27] MEDS ORDERED: DEXTROSE IV SCH (17:00)
[2017-06-27] MEDS ORDERED: MULTIVITAMIN IV SCH (17:00)
[2017-06-27] MEDS ORDERED: AMINO ACIDS 10% IV SCH (17:00)
[2017-06-27] MEDS: INSULIN REGULAR 100 UNIT/ML SUBCUT SCH (17:55)
[2017-06-28] MEDS: INSULIN REGULAR 100 UNIT/ML SUBCUT SCH ×4 (00:13→17:28)
[2017-06-28] MEDS: IPRATROPIUM 500 MCG/2.5 ML NEB RESP TX SCH ×5 (02:14→23:58)
[2017-06-28] MEDS: HYDROmorphone 2 MG/1 ML VIAL IM PRN ×2 (02:50→16:11)
[2017-06-28 06:18] LABS: Osmolality,Calculated 276.1 MOS/KG (273-304); Potassium 4.2 MMOL/L (3.5-5.1)
[2017-06-28 07:22] LABS: Basophils # 0.1 10*3/uL (0.0-0.2); Basophils % 0.6 % (0.0-0.8); Eosinophils # 0.8 10*3/uL (0.0-0.87); Eosinophils % 8.1 % (0.00-10.9); Hematocrit 25.9 VOL% (35.7-47.0); Hemoglobin 7.8 GM/DL (12.0-16.0); Immature Granulocytes % 0.6 %; Immature Granulocytes Absolute 0.06 #; Lymphocytes % 9.4 % (21.3-54.2); Mean Corpuscular HGB Conc 30.1 GM/DL (32-36); Mean Corpuscular Hemoglobin 27 PG (27-34); Mean Corpuscular Volume 90.6 FL (87-102); Mean Platelet Volume 9.5 FL (9.6-12.0); Monocytes # 0.8 10*3/uL (0.11-0.8); Monocytes % 8.2 % (1.7-12.7); Neutrophils # 7.4 10*3/uL (1.4-7.4); Neutrophils % 73.1 % (38.7-73.9); Platelet Count 257 T/CUMM (130-400); Red Blood Count 2.86 MC/CUMM (3.8-5.5); Red Cell Distribution Width 19.7 % (9.3-17.3); White Blood Count 10.2 T/CUMM (4-12)
[2017-06-28] MEDS: PANTOPRAZOLE 40 MG VIAL IV SCH (08:42)
[2017-06-28] MEDS: DEXTROSE 5% NACL 0.9% 1,000 ML IV SCH (11:25)
[2017-06-28] MEDS: FAT EMULSION 20% 250 ML IV SCH (14:12)
[2017-06-29] MEDS: INSULIN REGULAR 100 UNIT/ML SUBCUT SCH ×4 (01:28→17:08)
[2017-06-29] MEDS ORDERED: KETOROLAC 30 MG/1 ML VIAL IM ONE (03:00)
[2017-06-29 04:37] LABS: Basophils % 0.3 % (0.0-0.8); Eosinophils # 1.2 10*3/uL (0.0-0.87); Eosinophils % 12.8 % (0.00-10.9); Hematocrit 22.4 VOL% (35.7-47.0); Hemoglobin 6.9 GM/DL (12.0-16.0); Immature Granulocytes % 0.9 %; Immature Granulocytes Absolute 0.08 #; Lymphocytes # 1.4 10*3/uL (1.4-4.0); Lymphocytes % 15.1 % (21.3-54.2); Mean Corpuscular HGB Conc 30.8 GM/DL (32-36); Mean Corpuscular Hemoglobin 28 PG (27-34); Mean Corpuscular Volume 89.6 FL (87-102); Mean Platelet Volume 9.6 FL (9.6-12.0); Monocytes # 0.6 10*3/uL (0.11-0.8); Monocytes % 6.8 % (1.7-12.7); Neutrophils # 5.9 10*3/uL (1.4-7.4); Neutrophils % 64.1 % (38.7-73.9); Platelet Count 206 T/CUMM (130-400); Red Cell Distribution Width 19.3 % (9.3-17.3); White Blood Count 9.1 T/CUMM (4-12)
[2017-06-29] MEDS ORDERED: SODIUM CHLORIDE 0.9% 1,000 ML IV PRN (04:53)
[2017-06-29 04:59] LABS: Calcium 8.1 MG/DL (8.5-10.1); Osmolality,Calculated 276.1 MOS/KG (273-304); Potassium 3.9 MMOL/L (3.5-5.1)
[2017-06-29 05:02] LABS: Prealbumin 7.9 MG/DL (20-40)
[2017-06-29 05:25] LABS: Eosinophils 9 % (0-10); Giant Platelets Few; Hypochromasia 1+; Lymphocytes 18 % (20-55); Platelet Estimate Adequate; Segmented Neutrophils 67 % (50-85); Total Cells Counted 100
[2017-06-29] MEDS: IPRATROPIUM 500 MCG/2.5 ML NEB RESP TX SCH ×4 (07:38→19:38)
[2017-06-29] MEDS: HYDROmorphone 2 MG/1 ML VIAL IM PRN (08:03)
[2017-06-29] MEDS: PANTOPRAZOLE 40 MG VIAL IV SCH (08:04)
[2017-06-29 12:39] LABS: Hematocrit 26.3 VOL% (35.7-47.0); Hemoglobin 8.3 GM/DL (12.0-16.0)
[2017-06-29] MEDS: [UNRECOGNIZED DRUG - OTHER] IV SCH (14:18)
[2017-06-29] MEDS: FAT EMULSION 20% 250 ML IV SCH (14:18)
[2017-06-29] MEDS: MULTIVITAMIN IV SCH (14:18)
[2017-06-29] MEDS: TRACE ELEMENTS IV SCH (14:18)
[2017-06-29] MEDS: DEXTROSE IV SCH (14:18)
[2017-06-29] MEDS: HYDROmorphone 2 MG/1 ML VIAL IV PRN (18:06)
[2017-06-29] MEDS: LORATADINE 10 MG TABLET PO PRN (18:58)
[2017-06-29] MEDS: DORNASE ALFA 2.5 MG/2.5 ML VIAL RESP TX SCH (19:51)
[2017-06-29] MEDS ORDERED: ACETAMINOPHEN 325 MG TABLET PO STA (23:19)
[2017-06-30] MEDS: IPRATROPIUM 500 MCG/2.5 ML NEB RESP TX SCH ×4 (00:36→19:03)
[2017-06-30] MEDS: INSULIN REGULAR 100 UNIT/ML SUBCUT SCH ×4 (01:03→18:56)
[2017-06-30 05:53] LABS: Basophils % 0.5 % (0.0-0.8); Eosinophils # 1.1 10*3/uL (0.0-0.87); Eosinophils % 12.9 % (0.00-10.9); Hematocrit 25.5 VOL% (35.7-47.0); Hemoglobin 8.2 GM/DL (12.0-16.0); Immature Granulocytes % 1.8 %; Immature Granulocytes Absolute 0.15 #; Lymphocytes # 1.1 10*3/uL (1.4-4.0); Lymphocytes % 12.4 % (21.3-54.2); Mean Corpuscular HGB Conc 32.2 GM/DL (32-36); Mean Corpuscular Hemoglobin 28 PG (27-34); Mean Corpuscular Volume 86.7 FL (87-102); Mean Platelet Volume 9.4 FL (9.6-12.0); Monocytes # 0.6 10*3/uL (0.11-0.8); Monocytes % 6.7 % (1.7-12.7); NRBC # 0.02 10*3/uL; Neutrophils # 5.6 10*3/uL (1.4-7.4); Neutrophils % 65.7 % (38.7-73.9); Platelet Count 255 T/CUMM (130-400); Red Blood Count 2.94 MC/CUMM (3.8-5.5); Red Cell Distribution Width 18.1 % (9.3-17.3); White Blood Count 8.6 T/CUMM (4-12)
[2017-06-30 06:18] LABS: Elliptocytes Few; Eosinophils 5 % (0-10); Hypochromasia Slight; Lymphocytes 7 % (20-55); Macrocytosis 1+; Platelet Estimate Adequate; Segmented Neutrophils 78 % (50-85); Total Cells Counted 100
[2017-06-30 06:20] LABS: Calcium 8.2 MG/DL (8.5-10.1); Osmolality,Calculated 281.4 MOS/KG (273-304); Potassium 3.9 MMOL/L (3.5-5.1)
[2017-06-30] MEDS: DORNASE ALFA 2.5 MG/2.5 ML VIAL RESP TX SCH ×2 (07:16→19:05)
[2017-06-30] MEDS: PANTOPRAZOLE 40 MG VIAL IV SCH (08:08)
[2017-06-30] MEDS ORDERED: HEPARIN 10,000 UNIT/10 ML VIAL IV PRN (10:35)
[2017-06-30] MEDS: DEXTROSE IV SCH (13:57)
[2017-06-30] MEDS: MULTIVITAMIN IV SCH (13:57)
[2017-06-30] MEDS: TRACE ELEMENTS IV SCH (13:57)
[2017-06-30] MEDS: [UNRECOGNIZED DRUG - OTHER] IV SCH (13:57)
[2017-06-30] MEDS: FAT EMULSION 20% 250 ML IV SCH (13:58)
[2017-06-30] MEDS ORDERED: ACETAMINOPHEN 325 MG/10.15 ML UDCUP PO PRN (14:17)
[2017-06-30] MEDS: PIPERACILLIN/TAZOBACTAM 3,375 MG in SODIUM CHLORIDE 0.9% 100 ML IV SCH (14:44)
[2017-06-30] MEDS ORDERED: VANCOMYCIN INJ 400 MG in SODIUM CHLORIDE 0.9% 100 ML IV PRN (15:12)
[2017-06-30] MEDS: ACETAMINOPHEN 325 MG/10.15 ML UDCUP PO PRN (16:10)
[2017-06-30] MEDS ORDERED: VANCOMYCIN INJ 1,000 MG in SODIUM CHLORIDE 0.9% 250 ML IV ONE (20:00)
[2017-06-30] MEDS: HYDROmorphone 2 MG/1 ML VIAL IV PRN (23:10)
[2017-07-01] MEDS: INSULIN REGULAR 100 UNIT/ML SUBCUT SCH ×4 (00:30→18:39)
[2017-07-01] MEDS: IPRATROPIUM 500 MCG/2.5 ML NEB RESP TX SCH ×4 (00:36→19:48)
[2017-07-01] MEDS: PIPERACILLIN/TAZOBACTAM 3,375 MG in SODIUM CHLORIDE 0.9% 100 ML IV SCH ×2 (03:15→14:31)
[2017-07-01] MEDS: ACETAMINOPHEN 325 MG/10.15 ML UDCUP PO PRN (04:21)
[2017-07-01 05:05] LABS: Calcium 8.1 MG/DL (8.5-10.1); Osmolality,Calculated 271.5 MOS/KG (273-304); Potassium 3.6 MMOL/L (3.5-5.1)
[2017-07-01] MEDS: TRACE ELEMENTS IV SCH (06:21)
[2017-07-01] MEDS: [UNRECOGNIZED DRUG - OTHER] IV SCH (06:21)
[2017-07-01] MEDS: MULTIVITAMIN IV SCH (06:21)
[2017-07-01] MEDS: DEXTROSE IV SCH (06:21)
[2017-07-01] MEDS ORDERED: SODIUM CHLORIDE 0.9% 500 ML IV ONE (07:39)
[2017-07-01] MEDS: DORNASE ALFA 2.5 MG/2.5 ML VIAL RESP TX SCH ×2 (07:41→19:49)
[2017-07-01 08:25] LABS: Basophils # 0.1 10*3/uL (0.0-0.2); Basophils % 0.5 % (0.0-0.8); Eosinophils # 1.3 10*3/uL (0.0-0.87); Eosinophils % 9.9 % (0.00-10.9); Hematocrit 25.7 VOL% (35.7-47.0); Hemoglobin 8.2 GM/DL (12.0-16.0); Immature Granulocytes % 1.9 %; Immature Granulocytes Absolute 0.25 #; Lymphocytes # 0.9 10*3/uL (1.4-4.0); Lymphocytes % 6.9 % (21.3-54.2); Mean Corpuscular HGB Conc 31.9 GM/DL (32-36); Mean Corpuscular Hemoglobin 28 PG (27-34); Mean Corpuscular Volume 86.8 FL (87-102); Mean Platelet Volume 9.8 FL (9.6-12.0); Monocytes # 0.8 10*3/uL (0.11-0.8); Neutrophils # 9.7 10*3/uL (1.4-7.4); Neutrophils % 74.8 % (38.7-73.9); Platelet Count 270 T/CUMM (130-400); Red Blood Count 2.96 MC/CUMM (3.8-5.5); Red Cell Distribution Width 17.9 % (9.3-17.3)
[2017-07-01] MEDS: PANTOPRAZOLE 40 MG VIAL IV SCH (08:46)
[2017-07-01] MEDS: ONDANSETRON 4 MG/2 ML VIAL IV PRN ×2 (09:17→12:53)
[2017-07-01] MEDS: HYDROmorphone 2 MG/1 ML VIAL IV PRN ×2 (09:18→12:54)
[2017-07-01] MEDS ORDERED: SUGAMMADEX 200 MG/2 ML VIAL IV ONE (11:14)
[2017-07-01] MEDS ORDERED: DEXAMETHASONE 4 MG/1 ML VIAL ONE (11:48)
[2017-07-01] MEDS ORDERED: PROPOFOL 200 MG/20 ML VIAL IV ONE (11:52)
[2017-07-01] MEDS ORDERED: LABETALOL 20 MG/4 ML SYRINGE IV ONE (11:52)
[2017-07-01] MEDS ORDERED: ePHEDrine 50 MG/ML AMP ONE (11:53)
[2017-07-01] MEDS ORDERED: SEVOFLURANE 1 UNIT/15 MINUTE INH ONE (11:53)
[2017-07-01] MEDS ORDERED: fentaNYL 100 MCG/2 ML VIAL ONE (11:53)
[2017-07-01] MEDS ORDERED: ONDANSETRON 4 MG/2 ML VIAL ONE (11:53)
[2017-07-01] MEDS ORDERED: ROCURONIUM 100 MG/10 ML VIAL IV ONE (11:54)
[2017-07-01] MEDS ORDERED: SODIUM CHLORIDE 0.9% 250 ML IV ONE (11:54)
[2017-07-01] MEDS ORDERED: NEOSTIGMINE 10 MG/10 ML VIAL ONE (11:54)
[2017-07-01] MEDS ORDERED: GLYCOPYRROLATE 0.4 MG/2 ML VIAL ONE (11:54)
[2017-07-01] MEDS ORDERED: PHENYLEPHRINE 10 MG/1 ML VIAL IV ONE (11:54)
[2017-07-01] MEDS ORDERED: methylPREDNISolone SOD SUC 125 MG/2 ML VIAL ONE (11:54)
[2017-07-01] MEDS ORDERED: DEXAMETHASONE 4 MG/1 ML VIAL IV ONE (12:05)
[2017-07-01 12:40] LABS: Calcium 8.5 MG/DL (8.5-10.1); Osmolality,Calculated 272.7 MOS/KG (273-304); Potassium 3.7 MMOL/L (3.5-5.1)
[2017-07-01] MEDS: FAT EMULSION 20% 250 ML IV SCH (14:31)
[2017-07-01] MEDS ORDERED: hydrALAZINE 20 MG/1 ML VIAL IV PRN (19:43)
[2017-07-02] MEDS: HYDROmorphone 2 MG/1 ML VIAL IV PRN ×4 (00:41→20:32)
[2017-07-02] MEDS: IPRATROPIUM 500 MCG/2.5 ML NEB RESP TX SCH ×4 (00:56→19:25)
[2017-07-02] MEDS: INSULIN REGULAR 100 UNIT/ML SUBCUT SCH ×4 (01:12→18:06)
[2017-07-02] MEDS: TRACE ELEMENTS IV SCH ×3 (01:17→17:17)
[2017-07-02] MEDS: MULTIVITAMIN IV SCH ×3 (01:17→17:17)
[2017-07-02] MEDS: DEXTROSE IV SCH ×2 (01:17→03:04)
[2017-07-02] MEDS: [UNRECOGNIZED DRUG - OTHER] IV SCH ×2 (01:17→03:04)
[2017-07-02] MEDS: PIPERACILLIN/TAZOBACTAM 3,375 MG in SODIUM CHLORIDE 0.9% 100 ML IV SCH ×2 (03:04→14:28)
[2017-07-02 06:31] LABS: Osmolality,Calculated 277.1 MOS/KG (273-304); Potassium 3.5 MMOL/L (3.5-5.1); Prealbumin 8.7 MG/DL (20-40)
[2017-07-02] MEDS ORDERED: LIDOCAINE 1% 20 ML VIAL MISC INJ ONE (06:48)
[2017-07-02] MEDS ORDERED: LIDOCAINE 2% 20 ML VIAL RESP TX ONE (06:48)
[2017-07-02] MEDS ORDERED: MIDAZOLAM 2 MG/2 ML VIAL IV ONE ×2 (06:48→07:12)
[2017-07-02] MEDS: DORNASE ALFA 2.5 MG/2.5 ML VIAL RESP TX SCH (07:35)
[2017-07-02 07:44] LABS: Basophils # 0.2 10*3/uL (0.0-0.2); Basophils % 0.7 % (0.0-0.8); Eosinophils # 0.1 10*3/uL (0.0-0.87); Eosinophils % 0.3 % (0.00-10.9); Hematocrit 31.2 VOL% (35.7-47.0); Hemoglobin 9.7 GM/DL (12.0-16.0); Immature Granulocytes % 7.7 %; Immature Granulocytes Absolute 2.19 #; Lymphocytes # 2.5 10*3/uL (1.4-4.0); Lymphocytes % 8.8 % (21.3-54.2); Mean Corpuscular HGB Conc 31.1 GM/DL (32-36); Mean Corpuscular Hemoglobin 28 PG (27-34); Mean Corpuscular Volume 89.7 FL (87-102); Mean Platelet Volume 9.5 FL (9.6-12.0); Monocytes # 1.1 10*3/uL (0.11-0.8); Monocytes % 3.9 % (1.7-12.7); Neutrophils # 22.5 10*3/uL (1.4-7.4); Neutrophils % 78.6 % (38.7-73.9); Platelet Count 388 T/CUMM (130-400); Red Blood Count 3.48 MC/CUMM (3.8-5.5); Red Cell Distribution Width 17.5 % (9.3-17.3); White Blood Count 28.6 T/CUMM (4-12)
[2017-07-02 08:07] LABS: Band Neutrophils 1 % (0-10); Lymphocytes 11 % (20-55); Metamyelocytes 2 %; Myelocytes 1 %; Segmented Neutrophils 82 % (50-85); Total Cells Counted 100
[2017-07-02 08:08] LABS: Burr Cells Few; Hypochromasia 1+; Microcytosis 1+; Polychromasia Slight
[2017-07-02 08:09] LABS: Ovalocytes Slight; Platelet Estimate Normal
[2017-07-02] MEDS: PANTOPRAZOLE 40 MG VIAL IV SCH (09:34)
[2017-07-02] MEDS: HYDROCORTISONE 100 MG VIAL IV SCH ×2 (09:37→20:32)
[2017-07-02 13:48] LABS: Hepatitis B Surface Ag Quant < 0.10 Index; Hepatitis B Surface Ag Result Negative (Negative)
[2017-07-02] MEDS: FAT EMULSION 20% 250 ML IV SCH (14:28)
[2017-07-02] MEDS ORDERED: VANCOMYCIN INJ 500 MG in SODIUM CHLORIDE 0.9% 100 ML IV PRN (15:00)
[2017-07-02] MEDS: [UNRECOGNIZED DRUG - OTHER] IV SCH (17:17)
[2017-07-02] MEDS: INSULIN REGULAR IV SCH (17:17)
[2017-07-02] MEDS ORDERED: VANCOMYCIN INJ 500 MG in SODIUM CHLORIDE 0.9% 100 ML IV ONE (21:00)
[2017-07-03] MEDS: INSULIN REGULAR 100 UNIT/ML SUBCUT SCH ×4 (00:05→18:30)
[2017-07-03] MEDS: DORNASE ALFA 2.5 MG/2.5 ML VIAL RESP TX SCH (01:15)
[2017-07-03] MEDS: PIPERACILLIN/TAZOBACTAM 3,375 MG in SODIUM CHLORIDE 0.9% 100 ML IV SCH ×2 (02:42→15:35)
[2017-07-03 03:36] LABS: Basophils % 0.1 % (0.0-0.8); Eosinophils % 0.1 % (0.00-10.9); Hematocrit 23.1 VOL% (35.7-47.0); Immature Granulocytes % 6.2 %; Immature Granulocytes Absolute 1.37 #; Lymphocytes # 0.7 10*3/uL (1.4-4.0); Lymphocytes % 3.4 % (21.3-54.2); Mean Corpuscular HGB Conc 32.5 GM/DL (32-36); Mean Corpuscular Hemoglobin 28 PG (27-34); Mean Corpuscular Volume 86.5 FL (87-102); Monocytes # 1.2 10*3/uL (0.11-0.8); Monocytes % 5.2 % (1.7-12.7); Neutrophils # 18.7 10*3/uL (1.4-7.4); Platelet Count 282 T/CUMM (130-400); Red Blood Count 2.67 MC/CUMM (3.8-5.5)
[2017-07-03 03:37] LABS: Hemoglobin 7.5 GM/DL (12.0-16.0)
[2017-07-03 03:50] LABS: Calcium 8.6 MG/DL (8.5-10.1); Osmolality,Calculated 268.8 MOS/KG (273-304); Potassium 3.3 MMOL/L (3.5-5.1)
[2017-07-03 03:51] LABS: Band Neutrophils 15 % (0-10); Lymphocytes 3 % (20-55); Metamyelocytes 2 %; Segmented Neutrophils 76 % (50-85); Total Cells Counted 100
[2017-07-03 03:52] LABS: Anisocytosis 1+; Poikilocytosis 1+; Polychromasia Slight
[2017-07-03] MEDS: HYDROCORTISONE 100 MG VIAL IV SCH ×2 (06:04→18:30)
[2017-07-03] MEDS: HYDROmorphone 2 MG/1 ML VIAL IV PRN ×3 (06:05→21:03)
[2017-07-03] MEDS: IPRATROPIUM 500 MCG/2.5 ML NEB RESP TX SCH ×4 (07:20→19:26)
[2017-07-03] MEDS ORDERED: SODIUM CHLORIDE 0.9% 1,000 ML IV PRN (07:32)
[2017-07-03] MEDS ORDERED: MAGNESIUM SULF RIDER 4 GM in PREMIX 1 EACH IV PRN (08:11)
[2017-07-03] MEDS ORDERED: MAGNESIUM SULF RIDER 2 GM in PREMIX 1 EACH IV PRN (08:11)
[2017-07-03] MEDS ORDERED: POTASSIUM CHLORIDE RIDER 10 MEQ in PREMIX 1 EACH IV PRN (08:11)
[2017-07-03] MEDS: PANTOPRAZOLE 40 MG VIAL IV SCH (09:20)
[2017-07-03] MEDS ORDERED: HYDROmorphone 2 MG/1 ML VIAL IV ONE (09:49)
[2017-07-03] MEDS: METOPROLOL TARTRATE 50 MG TABLET PO SCH ×2 (14:19→21:02)
[2017-07-03] MEDS: AMIODARONE 200 MG TABLET PO SCH (14:19)
[2017-07-03] MEDS: INSULIN REGULAR IV SCH (14:32)
[2017-07-03] MEDS: TRACE ELEMENTS IV SCH (14:32)
[2017-07-03] MEDS: MULTIVITAMIN IV SCH (14:32)
[2017-07-03] MEDS: [UNRECOGNIZED DRUG - OTHER] IV SCH (14:32)
[2017-07-03] MEDS: FAT EMULSION 20% 250 ML IV SCH (15:01)
[2017-07-04] MEDS: INSULIN REGULAR 100 UNIT/ML SUBCUT SCH ×5 (00:24→23:51)
[2017-07-04] MEDS: IPRATROPIUM 500 MCG/2.5 ML NEB RESP TX SCH ×4 (01:06→19:33)
[2017-07-04] MEDS: PIPERACILLIN/TAZOBACTAM 3,375 MG in SODIUM CHLORIDE 0.9% 100 ML IV SCH ×2 (02:32→14:57)
[2017-07-04] MEDS: HYDROmorphone 2 MG/1 ML VIAL IV PRN ×4 (02:33→18:12)
[2017-07-04 03:19] LABS: Basophils % 0.2 % (0.0-0.8); Eosinophils % 0.1 % (0.00-10.9); Hematocrit 27.8 VOL% (35.7-47.0); Hemoglobin 9.1 GM/DL (12.0-16.0); Immature Granulocytes % 7.3 %; Immature Granulocytes Absolute 1.67 #; Lymphocytes % 4.3 % (21.3-54.2); Mean Corpuscular HGB Conc 32.7 GM/DL (32-36); Mean Corpuscular Hemoglobin 28 PG (27-34); Mean Corpuscular Volume 85.3 FL (87-102); Mean Platelet Volume 9.7 FL (9.6-12.0); Monocytes # 1.3 10*3/uL (0.11-0.8); Monocytes % 5.8 % (1.7-12.7); Neutrophils # 18.9 10*3/uL (1.4-7.4); Neutrophils % 82.3 % (38.7-73.9); Platelet Count 298 T/CUMM (130-400); Red Blood Count 3.26 MC/CUMM (3.8-5.5); Red Cell Distribution Width 17.5 % (9.3-17.3)
[2017-07-04 03:46] LABS: Calcium 8.4 MG/DL (8.5-10.1); Osmolality,Calculated 274.2 MOS/KG (273-304); Potassium 3.2 MMOL/L (3.5-5.1)
[2017-07-04 03:57] LABS: Band Neutrophils 4 % (0-10); Lymphocytes 6 % (20-55); Segmented Neutrophils 85 % (50-85); Total Cells Counted 100
[2017-07-04 03:59] LABS: Burr Cells Few; Polychromasia Few; Target Cells Few
[2017-07-04 04:00] LABS: Elliptocytes Few; Giant Platelets Few; Hypochromasia Slight; Platelet Estimate Normal
[2017-07-04] MEDS ORDERED: FUROSEMIDE 40 MG/4 ML VIAL IV ONE (05:23)
[2017-07-04] MEDS: HYDROCORTISONE 100 MG VIAL IV SCH ×2 (07:33→18:17)
[2017-07-04] MEDS: METOPROLOL TARTRATE 50 MG TABLET PO SCH ×2 (08:26→20:03)
[2017-07-04] MEDS: AMIODARONE 200 MG TABLET PO SCH (08:26)
[2017-07-04] MEDS: PANTOPRAZOLE 40 MG VIAL IV SCH (08:26)
[2017-07-04] MEDS: TRACE ELEMENTS IV SCH ×2 (12:34→12:48)
[2017-07-04] MEDS: INSULIN REGULAR IV SCH ×2 (12:34→12:48)
[2017-07-04] MEDS: MULTIVITAMIN IV SCH ×2 (12:34→12:48)
[2017-07-04] MEDS: [UNRECOGNIZED DRUG - OTHER] IV SCH ×2 (12:34→12:48)
[2017-07-04] MEDS: FAT EMULSION 20% 250 ML IV SCH (14:37)
[2017-07-04] MEDS ORDERED: VANCOMYCIN INJ 500 MG in SODIUM CHLORIDE 0.9% 100 ML IV ONE (18:00)
[2017-07-05] MEDS: HYDROmorphone 2 MG/1 ML VIAL IV PRN ×5 (00:09→22:36)
[2017-07-05] MEDS: IPRATROPIUM 500 MCG/2.5 ML NEB RESP TX SCH ×4 (01:11→19:11)
[2017-07-05] MEDS: PIPERACILLIN/TAZOBACTAM 3,375 MG in SODIUM CHLORIDE 0.9% 100 ML IV SCH ×2 (04:34→15:53)
[2017-07-05 05:11] LABS: Basophils # 0.1 10*3/uL (0.0-0.2); Basophils % 0.3 % (0.0-0.8); Eosinophils # 0.1 10*3/uL (0.0-0.87); Eosinophils % 0.3 % (0.00-10.9); Hematocrit 25.7 VOL% (35.7-47.0); Hemoglobin 8.3 GM/DL (12.0-16.0); Immature Granulocytes % 8.2 %; Immature Granulocytes Absolute 1.44 #; Lymphocytes % 5.6 % (21.3-54.2); Mean Corpuscular HGB Conc 32.3 GM/DL (32-36); Mean Corpuscular Hemoglobin 28 PG (27-34); Mean Corpuscular Volume 86.2 FL (87-102); Monocytes # 1.3 10*3/uL (0.11-0.8); Monocytes % 7.5 % (1.7-12.7); Neutrophils # 13.7 10*3/uL (1.4-7.4); Neutrophils % 78.1 % (38.7-73.9); Platelet Count 285 T/CUMM (130-400); Red Blood Count 2.98 MC/CUMM (3.8-5.5); Red Cell Distribution Width 18.1 % (9.3-17.3); White Blood Count 17.6 T/CUMM (4-12)
[2017-07-05] MEDS: INSULIN REGULAR 100 UNIT/ML SUBCUT SCH ×3 (05:18→18:29)
[2017-07-05] MEDS: INSULIN REGULAR IV SCH (05:55)
[2017-07-05] MEDS: TRACE ELEMENTS IV SCH (05:55)
[2017-07-05] MEDS: MULTIVITAMIN IV SCH (05:55)
[2017-07-05] MEDS: [UNRECOGNIZED DRUG - OTHER] IV SCH (05:55)
[2017-07-05] MEDS: HYDROCORTISONE 100 MG VIAL IV SCH ×2 (06:00→18:30)
[2017-07-05 06:33] LABS: Band Neutrophils 5 % (0-10); Eosinophils 1 % (0-10); Hypochromasia 2+; Lymphocytes 2 % (20-55); Myelocytes 1 %; Platelet Estimate Adequate; Segmented Neutrophils 86 % (50-85); Total Cells Counted 100
[2017-07-05] MEDS: AMIODARONE 200 MG TABLET PO SCH (09:18)
[2017-07-05] MEDS: METOPROLOL TARTRATE 50 MG TABLET PO SCH ×2 (09:18→21:01)
[2017-07-05] MEDS: PANTOPRAZOLE 40 MG VIAL IV SCH (09:21)
[2017-07-05] MEDS: FAT EMULSION 20% 250 ML IV SCH (14:20)
[2017-07-05] MEDS: FLUCONAZOLE 200 MG TABLET PO SCH (17:21)
[2017-07-05] MEDS: SKIN HEALING OINT (AQUAPHOR) 50 GM TUBE TOP PRN (17:47)
[2017-07-06] MEDS: INSULIN REGULAR 100 UNIT/ML SUBCUT SCH ×4 (00:29→18:19)
[2017-07-06] MEDS: MULTIVITAMIN IV SCH ×2 (01:08→17:30)
[2017-07-06] MEDS: INSULIN REGULAR IV SCH (01:08)
[2017-07-06] MEDS: [UNRECOGNIZED DRUG - OTHER] IV SCH (01:08)
[2017-07-06] MEDS: TRACE ELEMENTS IV SCH ×2 (01:08→17:30)
[2017-07-06] MEDS: IPRATROPIUM 500 MCG/2.5 ML NEB RESP TX SCH ×4 (01:59→19:30)
[2017-07-06] MEDS: HYDROmorphone 2 MG/1 ML VIAL IV PRN ×5 (01:59→22:17)
[2017-07-06] MEDS: PIPERACILLIN/TAZOBACTAM 3,375 MG in SODIUM CHLORIDE 0.9% 100 ML IV SCH ×2 (03:49→15:27)
[2017-07-06 06:05] LABS: Basophils # 0.1 10*3/uL (0.0-0.2); Basophils % 0.6 % (0.0-0.8); Eosinophils # 0.1 10*3/uL (0.0-0.87); Eosinophils % 0.4 % (0.00-10.9); Hematocrit 28.5 VOL% (35.7-47.0); Hemoglobin 9.1 GM/DL (12.0-16.0); Immature Granulocytes % 10.9 %; Immature Granulocytes Absolute 2.38 #; Lymphocytes # 1.7 10*3/uL (1.4-4.0); Lymphocytes % 7.8 % (21.3-54.2); Mean Corpuscular HGB Conc 31.9 GM/DL (32-36); Mean Corpuscular Hemoglobin 28 PG (27-34); Mean Corpuscular Volume 86.6 FL (87-102); Mean Platelet Volume 9.4 FL (9.6-12.0); Monocytes # 1.7 10*3/uL (0.11-0.8); Monocytes % 7.7 % (1.7-12.7); NRBC # 0.02 10*3/uL; Neutrophils # 15.8 10*3/uL (1.4-7.4); Neutrophils % 72.6 % (38.7-73.9); Platelet Count 310 T/CUMM (130-400); Red Blood Count 3.29 MC/CUMM (3.8-5.5); Red Cell Distribution Width 17.8 % (9.3-17.3); White Blood Count 21.8 T/CUMM (4-12)
[2017-07-06] MEDS: HYDROCORTISONE 100 MG VIAL IV SCH ×2 (06:11→18:47)
[2017-07-06 06:26] LABS: Eosinophils 2 % (0-10); Hypochromasia 1+; Lymphocytes 10 % (20-55); Metamyelocytes 1 %; Segmented Neutrophils 80 % (50-85); Total Cells Counted 100
[2017-07-06 06:27] LABS: Microcytosis 1+; Ovalocytes Slight; Platelet Estimate Normal
[2017-07-06 06:36] LABS: Calcium 8.6 MG/DL (8.5-10.1); Osmolality,Calculated 275.4 MOS/KG (273-304)
[2017-07-06 06:42] LABS: Prealbumin 18.5 MG/DL (20-40)
[2017-07-06] MEDS: METOPROLOL TARTRATE 50 MG TABLET PO SCH ×2 (08:51→22:20)
[2017-07-06] MEDS: POTASSIUM CHLORIDE RIDER 20 MEQ in PREMIX 1 EACH IV PRN ×2 (08:51→10:51)
[2017-07-06] MEDS: AMIODARONE 200 MG TABLET PO SCH (08:51)
[2017-07-06] MEDS: PANTOPRAZOLE 40 MG VIAL IV SCH (08:51)
[2017-07-06] MEDS: FAT EMULSION 20% 250 ML IV SCH (17:00)
[2017-07-06] MEDS: [UNRECOGNIZED DRUG - OTHER] IV SCH (17:30)
[2017-07-06] MEDS: ELECTROLYTE IV SCH (17:30)
[2017-07-06] MEDS: DESITIN 4OZ/NYSTATIN 15 GRAM MIXTURE PASTE TOP SCH (22:18)
[2017-07-06] MEDS: cloNIDine 0.1 MG/24 HR PATCH TRANSDERM SCH (22:19)
[2017-07-07] MEDS: INSULIN REGULAR 100 UNIT/ML SUBCUT SCH ×4 (00:56→18:31)
[2017-07-07] MEDS: IPRATROPIUM 500 MCG/2.5 ML NEB RESP TX SCH ×4 (01:52→19:37)
[2017-07-07] MEDS: HYDROmorphone 2 MG/1 ML VIAL IV PRN ×3 (01:57→20:51)
[2017-07-07] MEDS: PIPERACILLIN/TAZOBACTAM 3,375 MG in SODIUM CHLORIDE 0.9% 100 ML IV SCH (03:40)
[2017-07-07 05:46] LABS: Basophils % 0.1 % (0.0-0.8); Eosinophils # 0.4 10*3/uL (0.0-0.87); Eosinophils % 1.1 % (0.00-10.9); Hemoglobin 10.2 GM/DL (12.0-16.0); Immature Granulocytes % 11.9 %; Immature Granulocytes Absolute 3.94 #; Lymphocytes # 2.1 10*3/uL (1.4-4.0); Lymphocytes % 6.2 % (21.3-54.2); Mean Corpuscular HGB Conc 31.9 GM/DL (32-36); Mean Corpuscular Hemoglobin 28 PG (27-34); Mean Corpuscular Volume 87.7 FL (87-102); Mean Platelet Volume 9.4 FL (9.6-12.0); Monocytes # 2.8 10*3/uL (0.11-0.8); Monocytes % 8.3 % (1.7-12.7); NRBC # 0.03 10*3/uL; Neutrophils # 24.1 10*3/uL (1.4-7.4); Neutrophils % 72.4 % (38.7-73.9); Platelet Count 403 T/CUMM (130-400); Red Blood Count 3.65 MC/CUMM (3.8-5.5); Red Cell Distribution Width 17.9 % (9.3-17.3); White Blood Count 33.2 T/CUMM (4-12)
[2017-07-07 06:11] LABS: Eosinophils 4 % (0-10); Lymphocytes 6 % (20-55); Myelocytes 3 %; Segmented Neutrophils 82 % (50-85); Total Cells Counted 100
[2017-07-07 06:12] LABS: Hypochromasia 1+; Microcytosis 1+; Platelet Estimate Increased
[2017-07-07 06:13] LABS: Ovalocytes Slight; Polychromasia Slight
[2017-07-07 06:18] LABS: Osmolality,Calculated 273.8 MOS/KG (273-304); Potassium 3.8 MMOL/L (3.5-5.1)
[2017-07-07] MEDS: METOPROLOL TARTRATE 50 MG TABLET PO SCH ×2 (09:24→20:52)
[2017-07-07] MEDS: AMIODARONE 200 MG TABLET PO SCH (09:24)
[2017-07-07] MEDS: FLUCONAZOLE 200 MG TABLET PO SCH (09:24)
[2017-07-07] MEDS: HYDROCORTISONE 100 MG VIAL IV SCH ×2 (12:38→20:45)
[2017-07-07] MEDS: PANTOPRAZOLE 40 MG VIAL IV SCH (12:38)
[2017-07-07] MEDS: DESITIN 4OZ/NYSTATIN 15 GRAM MIXTURE PASTE TOP SCH ×2 (12:38→20:52)
[2017-07-07] MEDS: FAT EMULSION 20% 250 ML IV SCH (16:10)
[2017-07-07] MEDS: MULTIVITAMIN IV SCH (16:11)
[2017-07-07] MEDS: ELECTROLYTE IV SCH (16:11)
[2017-07-07] MEDS: TRACE ELEMENTS IV SCH (16:11)
[2017-07-07] MEDS: [UNRECOGNIZED DRUG - OTHER] IV SCH (16:11)
[2017-07-07] MEDS ORDERED: ACETAMINOPHEN 650 MG SUPP RECTAL PRN (16:20)
[2017-07-07] MEDS ORDERED: VANCOMYCIN INJ 500 MG in SODIUM CHLORIDE 0.9% 100 ML IV PRN (17:00)
[2017-07-07] MEDS ORDERED: VANCOMYCIN INJ 500 MG in SODIUM CHLORIDE 0.9% 100 ML IV ONE (18:30)
[2017-07-07] MEDS: MEROPENEM 500 MG in SYRINGE 1 EACH IV SCH (18:31)
[2017-07-08] MEDS: INSULIN REGULAR 100 UNIT/ML SUBCUT SCH ×4 (00:56→17:50)
[2017-07-08] MEDS: IPRATROPIUM 500 MCG/2.5 ML NEB RESP TX SCH ×4 (01:00→19:08)
[2017-07-08] MEDS: HYDROmorphone 2 MG/1 ML VIAL IV PRN ×3 (01:01→21:18)
[2017-07-08 06:07] LABS: Basophils # 0.1 10*3/uL (0.0-0.2); Basophils % 0.2 % (0.0-0.8); Eosinophils % 0.1 % (0.00-10.9); Hematocrit 25.7 VOL% (35.7-47.0); Hemoglobin 8.6 GM/DL (12.0-16.0); Immature Granulocytes % 7.9 %; Immature Granulocytes Absolute 2.01 #; Lymphocytes # 0.8 10*3/uL (1.4-4.0); Mean Corpuscular HGB Conc 33.5 GM/DL (32-36); Mean Corpuscular Hemoglobin 28 PG (27-34); Mean Platelet Volume 10.2 FL (9.6-12.0); Monocytes # 1.2 10*3/uL (0.11-0.8); Monocytes % 4.7 % (1.7-12.7); Neutrophils # 21.4 10*3/uL (1.4-7.4); Neutrophils % 84.1 % (38.7-73.9); Platelet Count 361 T/CUMM (130-400); Red Blood Count 3.06 MC/CUMM (3.8-5.5); Red Cell Distribution Width 18.5 % (9.3-17.3); White Blood Count 25.5 T/CUMM (4-12)
[2017-07-08 06:25] LABS: INR 1.1; PT Patient Result 11.4 SECS
[2017-07-08 06:42] LABS: Hypochromasia 1+; Lymphocytes 5 % (20-55); Microcytosis 1+; Ovalocytes Slight; Segmented Neutrophils 89 % (50-85); Total Cells Counted 100
[2017-07-08 06:43] LABS: Platelet Estimate Normal
[2017-07-08] MEDS: HYDROCORTISONE 100 MG VIAL IV SCH ×2 (06:45→18:49)
[2017-07-08 08:54] LABS: Calcium 8.5 MG/DL (8.5-10.1)
[2017-07-08 08:55] LABS: Osmolality,Calculated 277.8 MOS/KG (273-304); Potassium 4.3 MMOL/L (3.5-5.1)
[2017-07-08] MEDS: PANTOPRAZOLE 40 MG VIAL IV SCH (09:16)
[2017-07-08] MEDS: DESITIN 4OZ/NYSTATIN 15 GRAM MIXTURE PASTE TOP SCH ×2 (09:18→21:15)
[2017-07-08] MEDS: AMIODARONE 200 MG TABLET PO SCH (09:18)
[2017-07-08] MEDS: METOPROLOL TARTRATE 50 MG TABLET PO SCH ×2 (09:18→21:12)
[2017-07-08] MEDS: FAT EMULSION 20% 250 ML IV SCH (13:25)
[2017-07-08] MEDS: [UNRECOGNIZED DRUG - OTHER] IV SCH (13:26)
[2017-07-08] MEDS: MULTIVITAMIN IV SCH (13:26)
[2017-07-08] MEDS: TRACE ELEMENTS IV SCH (13:26)
[2017-07-08] MEDS: ELECTROLYTE IV SCH (13:26)
[2017-07-08] MEDS: ONDANSETRON 4 MG/2 ML VIAL IV PRN (13:39)
[2017-07-08] MEDS: LORATADINE 10 MG TABLET PO PRN (13:41)
[2017-07-08] MEDS: MEROPENEM 500 MG in SYRINGE 1 EACH IV SCH (17:50)
[2017-07-09] MEDS: INSULIN REGULAR 100 UNIT/ML SUBCUT SCH ×4 (00:17→17:38)
[2017-07-09] MEDS: IPRATROPIUM 500 MCG/2.5 ML NEB RESP TX SCH ×4 (01:05→20:13)
[2017-07-09] MEDS: ELECTROLYTE IV SCH (06:18)
[2017-07-09] MEDS: MULTIVITAMIN IV SCH (06:18)
[2017-07-09] MEDS: [UNRECOGNIZED DRUG - OTHER] IV SCH (06:18)
[2017-07-09] MEDS: TRACE ELEMENTS IV SCH (06:18)
[2017-07-09 06:58] LABS: Calcium 8.6 MG/DL (8.5-10.1); Osmolality,Calculated 292.7 MOS/KG (273-304); Potassium 3.9 MMOL/L (3.5-5.1)
[2017-07-09] MEDS: HYDROCORTISONE 100 MG VIAL IV SCH (07:23)
[2017-07-09] MEDS: METOPROLOL TARTRATE 50 MG TABLET PO SCH ×2 (13:30→21:56)
[2017-07-09] MEDS: AMIODARONE 200 MG TABLET PO SCH (13:30)
[2017-07-09] MEDS: DESITIN 4OZ/NYSTATIN 15 GRAM MIXTURE PASTE TOP SCH ×2 (13:31→21:57)
[2017-07-09] MEDS: PANTOPRAZOLE 40 MG VIAL IV SCH (15:55)
[2017-07-09] MEDS ORDERED: VANCOMYCIN INJ 500 MG in SODIUM CHLORIDE 0.9% 100 ML IV ONE (18:00)
[2017-07-09] MEDS: MEROPENEM 500 MG in SYRINGE 1 EACH IV SCH (18:21)
[2017-07-09] MEDS: HYDROCORTISONE 10 MG TABLET PO SCH (21:56)
[2017-07-10] MEDS: IPRATROPIUM 500 MCG/2.5 ML NEB RESP TX SCH ×4 (00:30→19:23)
[2017-07-10] MEDS: INSULIN REGULAR 100 UNIT/ML SUBCUT SCH ×3 (00:52→12:28)
[2017-07-10 06:05] LABS: Basophils % 0.1 % (0.0-0.8); Eosinophils # 0.2 10*3/uL (0.0-0.87); Eosinophils % 1.7 % (0.00-10.9); Hematocrit 25.5 VOL% (35.7-47.0); Hemoglobin 8.5 GM/DL (12.0-16.0); Immature Granulocytes % 4.9 %; Immature Granulocytes Absolute 0.69 #; Lymphocytes # 0.7 10*3/uL (1.4-4.0); Lymphocytes % 5.2 % (21.3-54.2); Mean Corpuscular HGB Conc 33.3 GM/DL (32-36); Mean Corpuscular Hemoglobin 28 PG (27-34); Mean Corpuscular Volume 84.7 FL (87-102); Mean Platelet Volume 10.2 FL (9.6-12.0); Monocytes # 0.6 10*3/uL (0.11-0.8); Monocytes % 4.2 % (1.7-12.7); Neutrophils # 11.7 10*3/uL (1.4-7.4); Neutrophils % 83.9 % (38.7-73.9); Platelet Count 379 T/CUMM (130-400); Red Blood Count 3.01 MC/CUMM (3.8-5.5); Red Cell Distribution Width 19.3 % (9.3-17.3)
[2017-07-10 06:16] LABS: Calcium 7.9 MG/DL (8.5-10.1); Potassium 4.2 MMOL/L (3.5-5.1)
[2017-07-10 06:33] LABS: Band Neutrophils 2 % (0-10); Lymphocytes 8 % (20-55); Segmented Neutrophils 87 % (50-85); Total Cells Counted 100
[2017-07-10 06:34] LABS: Giant Platelets Few; Hypochromasia 1+; Microcytosis Slight; Platelet Estimate Adequate
[2017-07-10] MEDS: HYDROCORTISONE 10 MG TABLET PO SCH ×2 (10:10→20:28)
[2017-07-10] MEDS: LANSOPRAZOLE ODT 30 MG TABLET PO SCH (10:10)
[2017-07-10] MEDS: DESITIN 4OZ/NYSTATIN 15 GRAM MIXTURE PASTE TOP SCH ×2 (10:10→20:42)
[2017-07-10] MEDS: AMIODARONE 200 MG TABLET PO SCH (10:10)
[2017-07-10] MEDS: METOPROLOL TARTRATE 50 MG TABLET PO SCH ×2 (10:10→20:28)
[2017-07-10] MEDS: HYDROmorphone 2 MG/1 ML VIAL IV PRN ×2 (16:10→20:42)
[2017-07-10] MEDS: MEROPENEM 500 MG in SYRINGE 1 EACH IV SCH (17:05)
[2017-07-11] MEDS: IPRATROPIUM 500 MCG/2.5 ML NEB RESP TX SCH ×4 (00:18→20:09)
[2017-07-11] MEDS: HYDROmorphone 2 MG/1 ML VIAL IV PRN ×4 (07:37→21:15)
[2017-07-11] MEDS: AMIODARONE 200 MG TABLET PO SCH (09:00)
[2017-07-11] MEDS: METOPROLOL TARTRATE 50 MG TABLET PO SCH ×2 (09:00→21:21)
[2017-07-11] MEDS: HYDROCORTISONE 10 MG TABLET PO SCH ×2 (09:00→21:21)
[2017-07-11] MEDS: LANSOPRAZOLE ODT 30 MG TABLET PO SCH (09:00)
[2017-07-11] MEDS: DESITIN 4OZ/NYSTATIN 15 GRAM MIXTURE PASTE TOP SCH ×2 (11:56→21:21)
[2017-07-11] MEDS ORDERED: VANCOMYCIN INJ 500 MG in SODIUM CHLORIDE 0.9% 100 ML IV ONE (16:00)
[2017-07-11] MEDS: MEROPENEM 500 MG in SYRINGE 1 EACH IV SCH (17:33)
[2017-07-12] MEDS: IPRATROPIUM 500 MCG/2.5 ML NEB RESP TX SCH ×4 (00:55→19:35)
[2017-07-12] MEDS: HYDROmorphone 2 MG/1 ML VIAL IV PRN ×3 (01:09→12:39)
[2017-07-12] MEDS: ONDANSETRON 4 MG/2 ML VIAL IV PRN (08:31)
[2017-07-12] MEDS: METOPROLOL TARTRATE 50 MG TABLET PO SCH ×2 (08:32→21:15)
[2017-07-12] MEDS: AMIODARONE 200 MG TABLET PO SCH (08:32)
[2017-07-12] MEDS: DESITIN 4OZ/NYSTATIN 15 GRAM MIXTURE PASTE TOP SCH ×2 (08:32→21:15)
[2017-07-12] MEDS: HYDROCORTISONE 10 MG TABLET PO SCH ×2 (08:32→21:14)
[2017-07-12] MEDS: LANSOPRAZOLE ODT 30 MG TABLET PO SCH (08:32)
[2017-07-12] MEDS: MEROPENEM 500 MG in SYRINGE 1 EACH IV SCH (17:29)
[2017-07-13] MEDS: IPRATROPIUM 500 MCG/2.5 ML NEB RESP TX SCH ×4 (00:14→19:25)
[2017-07-13 05:24] LABS: Basophils # 0.1 10*3/uL (0.0-0.2); Basophils % 0.5 % (0.0-0.8); Eosinophils # 1.3 10*3/uL (0.0-0.87); Eosinophils % 8.7 % (0.00-10.9); Hematocrit 28.3 VOL% (35.7-47.0); Hemoglobin 9.1 GM/DL (12.0-16.0); Immature Granulocytes % 2.9 %; Immature Granulocytes Absolute 0.44 #; Lymphocytes # 1.4 10*3/uL (1.4-4.0); Lymphocytes % 9.5 % (21.3-54.2); Mean Corpuscular HGB Conc 32.2 GM/DL (32-36); Mean Corpuscular Hemoglobin 28 PG (27-34); Mean Corpuscular Volume 87.1 FL (87-102); Mean Platelet Volume 9.9 FL (9.6-12.0); Monocytes # 0.8 10*3/uL (0.11-0.8); Monocytes % 5.4 % (1.7-12.7); Platelet Count 349 T/CUMM (130-400); Red Blood Count 3.25 MC/CUMM (3.8-5.5); Red Cell Distribution Width 18.6 % (9.3-17.3); White Blood Count 15.1 T/CUMM (4-12)
[2017-07-13 06:00] LABS: Calcium 8.6 MG/DL (8.5-10.1); Osmolality,Calculated 277.7 MOS/KG (273-304); Potassium 5.1 MMOL/L (3.5-5.1)
[2017-07-13] MEDS: HYDROCORTISONE 10 MG TABLET PO SCH ×2 (09:35→21:21)
[2017-07-13] MEDS: METOPROLOL TARTRATE 50 MG TABLET PO SCH ×2 (09:35→21:21)
[2017-07-13] MEDS: LANSOPRAZOLE ODT 30 MG TABLET PO SCH (09:36)
[2017-07-13] MEDS: AMIODARONE 200 MG TABLET PO SCH (09:36)
[2017-07-13] MEDS: cloNIDine 0.1 MG/24 HR PATCH TRANSDERM SCH (09:37)
[2017-07-13] MEDS: DESITIN 4OZ/NYSTATIN 15 GRAM MIXTURE PASTE TOP SCH ×2 (20:56→21:21)
[2017-07-14] MEDS: HYDROmorphone 2 MG/1 ML VIAL IV PRN ×2 (00:12→23:43)
[2017-07-14] MEDS: IPRATROPIUM 500 MCG/2.5 ML NEB RESP TX SCH ×4 (00:32→19:43)
[2017-07-14] MEDS ORDERED: TUBERCULIN SKIN TEST 0.1 ML SYRINGE INTRADERM ONE (14:17)
[2017-07-14] MEDS: AMIODARONE 200 MG TABLET PO SCH (14:57)
[2017-07-14] MEDS: HYDROCORTISONE 10 MG TABLET PO SCH ×2 (14:57→21:29)
[2017-07-14] MEDS: LANSOPRAZOLE ODT 30 MG TABLET PO SCH (14:57)
[2017-07-14] MEDS: METOPROLOL TARTRATE 50 MG TABLET PO SCH ×2 (14:57→21:29)
[2017-07-14] MEDS: DESITIN 4OZ/NYSTATIN 15 GRAM MIXTURE PASTE TOP SCH ×2 (20:33→21:30)
[2017-07-15] MEDS: IPRATROPIUM 500 MCG/2.5 ML NEB RESP TX SCH ×4 (00:23→20:10)
[2017-07-15] MEDS: HYDROmorphone 2 MG/1 ML VIAL IV PRN ×4 (05:15→22:13)
[2017-07-15] MEDS: AMIODARONE 200 MG TABLET PO SCH (09:25)
[2017-07-15] MEDS: HYDROCORTISONE 10 MG TABLET PO SCH ×2 (09:25→22:13)
[2017-07-15] MEDS: METOPROLOL TARTRATE 50 MG TABLET PO SCH ×2 (09:25→22:13)
[2017-07-15] MEDS: DESITIN 4OZ/NYSTATIN 15 GRAM MIXTURE PASTE TOP SCH ×2 (09:25→22:13)
[2017-07-15] MEDS: LANSOPRAZOLE ODT 30 MG TABLET PO SCH (09:25)
[2017-07-16] MEDS: IPRATROPIUM 500 MCG/2.5 ML NEB RESP TX SCH ×4 (01:53→19:30)
[2017-07-16] MEDS: HYDROmorphone 2 MG/1 ML VIAL IV PRN ×3 (02:12→22:41)
[2017-07-16 07:26] LABS: Calcium 8.5 MG/DL (8.5-10.1); Osmolality,Calculated 276.9 MOS/KG (273-304); Prealbumin 37.5 MG/DL (20-40)
[2017-07-16 07:47] LABS: Potassium 6.8 MMOL/L (3.5-5.1)
[2017-07-16 08:25] LABS: Calcium 8.6 MG/DL (8.5-10.1); Osmolality,Calculated 276.1 MOS/KG (273-304)
[2017-07-16 08:29] LABS: Potassium 6.5 MMOL/L (3.5-5.1)
[2017-07-16] MEDS: HYDROCORTISONE 10 MG TABLET PO SCH ×2 (13:18→21:05)
[2017-07-16] MEDS: LANSOPRAZOLE ODT 30 MG TABLET PO SCH (13:18)
[2017-07-16] MEDS: AMIODARONE 200 MG TABLET PO SCH (13:18)
[2017-07-16] MEDS: METOPROLOL TARTRATE 50 MG TABLET PO SCH ×2 (13:19→21:05)
[2017-07-16] MEDS: DESITIN 4OZ/NYSTATIN 15 GRAM MIXTURE PASTE TOP SCH ×2 (13:19→21:07)
[2017-07-17] MEDS: IPRATROPIUM 500 MCG/2.5 ML NEB RESP TX SCH ×2 (01:07→07:09)
[2017-07-17 05:20] LABS: Calcium 8.5 MG/DL (8.5-10.1); Potassium 5.5 MMOL/L (3.5-5.1)
[2017-07-17] MEDS: HYDROCORTISONE 10 MG TABLET PO SCH (09:17)
[2017-07-17] MEDS: LANSOPRAZOLE ODT 30 MG TABLET PO SCH (09:17)
[2017-07-17] MEDS: AMIODARONE 200 MG TABLET PO SCH (09:17)
[2017-07-17] MEDS: METOPROLOL TARTRATE 50 MG TABLET PO SCH (09:17)
[2017-07-17 11:25] VITALS: BP 113/69
== END 2017-07-17 11:50 | DRG 329 ==
LOC: N.ED 01:39 → N.EDINP 05:32 → SUATTDRO 05:36 → N.TELEN 06:35 → N.CC 08:27 → N.5E 06-28 15:05 → N.ICU 07-01 12:31 → N.3E 07-05 22:45
PROVIDERS: ADMIT Internal Medicine Infectious Disease; ATTEND Internal Medicine
PROC: EGDWPEG (ICD-10-PCS; 2017-07-08 09:35)

== ENCOUNTER 2017-07-28 23:17 | Inpatient (IN) ==
[2017-07-31 12:22] VITALS: BP 145/68
== END 2017-07-31 13:17 | disposition swing bed (61) | DRG 308 ==
LOC: N.TELES 07-29 01:51
PROVIDERS: ADMIT Internal Medicine; ATTEND Internal Medicine